=== PATIENT | male | born 1945 | race Caucasian/White ===

== ENCOUNTER 2021-09-09 11:41 | Emergency (ER) | payer MEDICARE ==
[2021-09-09 12:00] VITALS: RESP 18; TEMP 97.3
[2021-09-09 12:28] LABS: Basophils % (A) 0 %; Eosinophils # (A) 0.4 k/uL (0-0.7); Eosinophils % (A) 3 %; HCT 48.6 % (39.0-53.0); HGB 15.7 gm/dL (13.0-17.5); Lymphocytes # (A) 1.8 k/uL (1.0-4.8); Lymphocytes % (A) 14 %; MCH 30.2 pg (25.0-35.0); MCHC 32.4 g/dL (31.0-37.0); MCV 93.3 fL (80.0-100.0); Mean Platelet Volume 7.2; Monocytes # (A) 0.5 k/uL (0-1.0); Monocytes % (A) 4 %; Neutrophils # (A) 10.5 k/uL (1.3-7.7); Neutrophils % (A) 78 %; Platelet Count 336 k/uL (150-450); RBC 5.21 m/uL (4.30-5.90); RDW 13.8 % (11.5-15.5); WBC 13.5 k/uL (3.8-10.6)
[2021-09-09 12:38] LABS: African American GFR (CKD) >90 (>60 ml/min/1.73 sqM); Anion Gap 9 mmol/L; Blood Urea Nitrogen 16 mg/dL (9-20); Carbon Dioxide 29 mmol/L (22-30); Chloride 96 mmol/L (98-107); Glucose 117 mg/dL (74-99); Non-African American GFR(CKD) 78 (>60 ml/min/1.73 sqM); Potassium 3.5 mmol/L (3.5-5.1); Sodium 134 mmol/L (137-145)
[2021-09-09 12:45] LABS: INR 0.9 (<1.2); Partial Thromboplastin Time 23.7 sec (22.0-30.0); Prothrombin Time 9.7 sec (9.0-12.0)
--- NOTE | 2021-09-09 12:57 | ED ---
General Adult HPI - General Chief complaint: Altered Mental Status Stated complaint: fall, hit head Time Seen by Provider: 09/09/21 12:03 Source: patient Mode of arrival: ambulatory Limitations: no limitations - History of Present Illness Initial comments: Dictation was produced using [employer] dictation software. please excuse any grammatical, word or spelling errors. Chief Complaint: 76-year-old male presents emergency department after fall History of Present Illness: Patient 76-year-old male he presents to the emergency department after fall. Has past medical history of A. fib takes anticoagulation medications. Event occurred at approximately 10:30 AM. He is, from the store walking into the house when he slipped on a patch of ice. He states he hurt his right ankle. He states he thinks he inverted it. He fell backwards landing on his back. He initially went to the urgent care was told to come to the emergency department. He started having nausea when the waiting or mental urgent care. He is thinking he probably has a concussion. He has also thoracic and lumbar back pain and posterior right rib pain. States that his pain is improved not worse with pressing will worse with truncal rotation and bending. The ROS documented in this emergency department record has been reviewed and confirmed by me. Those systems with pertinent positive or negative responses have been documented in the HPI. All other systems are other negative and/or noncontributory. PHYSICAL EXAM: General Impression: Alert and oriented x3, not in acute distress HEENT: Normocephalic atraumatic, extra-ocular movements intact, pupils equal and reactive to light bilaterally, mucous membranes moist. Cardiovascular: Heart regular rate and rhythm Chest: Able to complete full sentences, no retractions, no tachypnea Abdomen: abdomen soft, non-tender, non-distended, no organomegaly Musculoskeletal: Pulses present and equal in all extremities, no peripheral edema Ankle: Mild swelling at the right lateral malleolus Motor: no focal deficits noted Neurological: CN II-XII grossly intact, no focal motor or sensory deficits noted Skin: Intact with no visualized rashes Psych: Normal affect and mood ED course: 76-year-old male presents after fall. Vital signs upon arrival are within acceptable limits. Laboratory evaluation obtained. CBC, coag panel, metabolic panel is unremarkable. Ankle x-ray shows no obvious fracture but there does appear to be some cortical offset concerning for nondisplaced fracture. Computed tomography scan of chest and pelvis shows no traumatic injuries. Computed tomography scan of the head and C-spine shows no intracranial injuries. Reevaluated at bedside to 30 p.m. found to be stable medical condition. He is well-appearing. He states that his pain is significantly improved. Patient placed in a right lower extremity ankle posterior mold splint. Patient given crutches and tramadol starter pack. Advised follow-up with primary care doctor, orthopedic surgeon or imaging technician. Also encouraged to follow-up with his neurologist for concussive symptoms. - Related Data Allergies Allergy/AdvReac Type Severity Reaction Status Date / Time No Known Allergies Allergy Verified 09/09/21 11:51 Review of Systems ROS Statement: Those systems with pertinent positive or pertinent negative responses have been documented in the HPI. ROS Other: All systems not noted in ROS Statement are negative. Past Medical History Past Medical History: Atrial Fibrillation, CVA/TIA, GERD/Reflux, Hyperlipidemia, Hypertension History of Any Multi-Drug Resistant Organisms: None Reported Past Surgical History: Pacemaker Past Psychological History: No Psychological Hx Reported Smoking Status: Never smoker Past Alcohol Use History: None Reported Past Drug Use History: None Reported General Exam Limitations: no limitations Course Vital Signs 09/09/21 11:52 Temperature 97.3 F L Pulse Rate 99 Respiratory 18 Rate Blood Pressure 155/92 O2 Sat by Pulse 99 Oximetry Medical Decision Making - Lab Data Result diagrams: 09/09/21 12:22 09/09/21 12:22 Lab Results 09/09/21 09/09/21 09/09/21 Range/Units 12:22 12:22 12:22 WBC 13.5 H (3.8-10.6) k/uL RBC 5.21 (4.30-5.90) m/uL Hgb 15.7 (13.0-17.5) gm/dL Hct 48.6 (39.0-53.0) % MCV 93.3 (80.0-100.0) fL MCH 30.2 (25.0-35.0) pg MCHC 32.4 (31.0-37.0) g/dL RDW 13.8 (11.5-15.5) % Plt Count 336 (150-450) k/uL MPV 7.2 Neutrophils % 78 % Lymphocytes % 14 % Monocytes % 4 % Eosinophils % 3 % Basophils % 0 % Neutrophils # 10.5 H (1.3-7.7) k/uL Lymphocytes # 1.8 (1.0-4.8) k/uL Monocytes # 0.5 (0-1.0) k/uL Eosinophils # 0.4 (0-0.7) k/uL Basophils # 0.0 (0-0.2) k/uL PT 9.7 (9.0-12.0) sec INR 0.9 (<1.2) APTT 23.7 (22.0-30.0) sec Sodium 134 L (137-145) mmol/L Potassium 3.5 (3.5-5.1) mmol/L Chloride 96 L (98-107) mmol/L Carbon Dioxide 29 (22-30) mmol/L Anion Gap 9 mmol/L BUN 16 (9-20) mg/dL Creatinine 0.95 (0.66-1.25) mg/dL Est GFR (CKD-EPI)AfAm >90 (>60 ml/min/1.73 sqM) Est GFR (CKD-EPI)NonAf 78 (>60 ml/min/1.73 sqM) Glucose 117 H (74-99) mg/dL Calcium 9.0 (8.4-10.2) mg/dL Disposition Clinical Impression: Fall Disposition: HOME SELF-CARE Condition: Fair Instructions (If sedation given, give patient instructions): Fall Prevention for Older Adults (ED), Ankle Fracture (ED) Is patient prescribed a controlled substance at d/c from ED?: No Referrals: Augie Luis MD [Primary Care Provider] - 1-2 days Vahid Thibodeaux MD [Medical Doctor] - 1-2 days Leandro Sargent DPM [STAFF PHYSICIAN] - 1-2 days
--- NOTE | 2021-09-09 13:01 | CT ---
EXAMINATION TYPE: CT brain hsaina gonzalez DATE OF EXAM: 09/09/2021 COMPARISON: None HISTORY: Fall this am, hitting occipital lobe CT DLP: 1640.[address] of the brain was performed. The ventricles, basal cisterns and sulci overlying the cerebral convexities demonstrate mild enlargem ent. There is no evidence for intracranial hemorrhage or sulcal effacement. There is decreased attenuatio n about the periventricular white matter and deep white matter of both cerebral hemispheres, compatib le with chronic small vessel ischemia. No mass effects are seen. If symptoms persist consider MRI. Osseous calvarium is intact. IMPRESSION: 1. Age related atrophic and chronic small vessel ischemic change without acute intracranial process seen at this time. CT Cervical Spine: Unenhanced CT of the cervical spine was performed with bone and soft tissue window settings submitted . Coronal and sagittal reconstruction is obtained. There is normal alignment and prevertebral soft tissues. No evidence for acute cervical fracture . Scattered degenerative disc disease and spondylosis. Biapical scarring. IMPRESSION: 1. No evidence for acute fracture or subluxation of the cervical spine.
--- NOTE | 2021-09-09 13:45 | CT ---
EXAMINATION TYPE: CT ChestAbdPelvis w con DATE OF EXAM: 09/09/2021 COMPARISON: None HISTORY: Fall, hit head CT DLP: 1581.2 mGycm CONTRAST: Contrast enhanced Trauma CT of the Chest, Abdomen and Pelvis is performed with IV Contrast, patient i njected with 100 ml mL of Isovue 300. Chest: LUNGS: There is no evidence for pneumothorax. The lungs are clear and free of focal contusion or ate lectasis. No pleural effusion MEDIASTINUM: Thoracic aorta is of normal caliber without CT evidence to suggest traumatic induced ao rtic injury. No mediastinal fluid or blood. No pericardial fluid or cardia abnormality. HILAR STRUCTURES: No evidence for mass. No hilar adenopathy is appreciated. OTHER: No significant abnormality. OSSEOUS: There appears to be a healed fracture involving right rib #7 seen on image 38 of 147. Correl ate clinically with point tenderness. CT ABDOMEN AND PELVIS FINDINGS: LIVER/GB: No focal laceration, contusion or subcapsular hemorrhage. No calcified gallstones. No s pace occupying hepatic lesion. Biliary tree is of normal caliber. PANCREAS: No evidence for transection. No inflammation. No distinct mass. SPLEEN: No focal laceration, contusion or subcapsular hemorrhage. ADRENALS: No hemorrhage. No nodule. No thickening. KIDNEYS/BLADDER: No focal laceration, contusion or subcapsular hemorrhage. No hydronephrosis. No n ephrolithiasis. Simple cyst right kidney. BOWEL: Bowel is intact. No evidence for pneumoperitoneum. GENITAL ORGANS: No gross abnormality. LYMPH NODES: No greater than 1cm abdominal or pelvic lymph nodes are appreciated. AORTA: No traumatic aortic injury visualized. OSSEOUS STRUCTURES: No displaced fracture seen. OTHER: No evidence for hemoperitoneum. IMPRESSION: 1. No evidence for traumatic injury to the chest. 2. No evidence for traumatic injury to the abdomen or pelvis. 3.There appears to be a healed fracture involving right rib #7 seen on image 38 of 147. Correlate cli nically with point tenderness.
--- NOTE | 2021-09-09 13:47 | XR ---
EXAMINATION TYPE: XR ankle complete RT DATE OF EXAM: 09/09/2021 COMPARISON: NONE HISTORY: Pain TECHNIQUE: Frontal, lateral and oblique images of the right ankle are obtained. COMPARISON: None. FINDINGS: There is vague cortical offset involving the lateral malleolus and nondisplaced fracture is difficult to exclude. There is associated soft tissue swelling seen. No additional fracture suspecte d. Ankle mortise is intact. IMPRESSION: There is vague cortical offset involving the lateral malleolus and nondisplaced fracture is difficult to exclude.
[2021-09-09] MEDS ORDERED: traMADol 50 MG STARTER PACK 3 TAB BTL PO STA (14:35)
--- NOTE | 2021-09-09 14:36 | ED ---
Medical Decision Making - Lab Data Result diagrams: 09/09/21 12:22 09/09/21 12:22 Lab Results 09/09/21 09/09/21 09/09/21 Range/Units 12:22 12: 12:22 WBC 13.5 H (3.8-10.6) k/uL RBC 5.21 (4.30-5.90) m/uL Hgb 15.7 (13.0-17.5) gm/dL Hct 48.6 (39.0-53.0) % MCV 93.3 (80.0-100.0) fL MCH 30.2 (25.0-35.0) pg MCHC 32.4 (31.0-37.0) g/dL RDW 13.8 (11.5-15.5) % Plt Count 336 (150-450) k/uL MPV 7.2 Neutrophils % 78 % Lymphocytes % 14 % Monocytes % 4 % Eosinophils % 3 % Basophils % 0 % Neutrophils # 10.5 H (1.3-7.7) k/uL Lymphocytes # 1.8 (1.0-4.8) k/uL Monocytes # 0.5 (0-1.0) k/uL Eosinophils # 0.4 (0-0.7) k/uL Basophils # 0.0 (0-0.2) k/uL PT 9.7 (9.0-12.0) sec INR 0.9 (<1.2) APTT 23.7 (22.0-30.0) sec Sodium 134 L (137-145) mmol/L Potassium 3.5 (3.5-5.1) mmol/L Chloride 96 L (98-107) mmol/L Carbon Dioxide 29 (22-30) mmol/L Anion Gap 9 mmol/L BUN 16 (9-20) mg/dL Creatinine 0.95 (0.66-1.25) mg/dL Est GFR (CKD-EPI)AfAm >90 (>60 ml/min/1.73 sqM) Est GFR (CKD-EPI)NonAf 78 (>60 ml/min/1.73 sqM) Glucose 117 H (74-99) mg/dL Calcium 9.0 (8.4-10.2) mg/dL Disposition Clinical Impression: Fall Disposition: HOME SELF-CARE Condition: Fair Instructions (If sedation given, give patient instructions): Ankle Fracture (ED), Fall Prevention for Older Adults (ED) Is patient prescribed a controlled substance at d/c from ED?: No Referrals: Leandro Sargent DPM [STAFF PHYSICIAN] - 1-2 days Augie Luis MD [Primary Care Provider] - 1-2 days Vahid Thibodeaux MD [Medical Doctor] - 1-2 days Procedures - Orthopedic Splinting/Casting Injury #1 Side: right Lower Extremity Injury Location: short leg, ankle Lower Extremity Immobilizer: posterior splint Other Orthopedic Equipment: crutches
[2021-09-09 15:15] VITALS: BP 116/56; PULSE 74
== END 2021-09-09 15:44 | disposition home or self-care (01) ==
LOC: EC 11:41
DX: M54.59 Other low back pain (principal); I10 Essential (primary) hypertension; E78.5 Hyperlipidemia, unspecified; I48.91 Unspecified atrial fibrillation; K21.9 Gastro-esophageal reflux disease without esophagitis; Z86.73 Personal history of transient ischemic attack (TIA), and cerebral infarction without residual deficits; Z95.0 Presence of cardiac pacemaker
CPT/HCPCS: 99284; 36415; 80048; 85025; 85610; 85730; 73610; 72125; 70450; 71260; 74177; Q9967

== ENCOUNTER → 2022-07-12 | Outpatient (CLI) | payer MEDICARE ==
--- NOTE | 2022-07-12 12:04 | CT ---
EXAMINATION TYPE: CT soft tissue neck w con DATE OF EXAM: 07/12/2022 COMPARISON: CT chest abdomen and pelvis 09/09/2021 HISTORY: Swelling right side mass/lump CT DLP: 604 mGycm CONTRAST: Patient injected with 70 ml mL of Isovue 300. TECHNIQUE: Axial images at 3 mm thick sections. Reconstructed images in the coronal plane and sagitt al plane are reviewed. FINDINGS: Limited CT sections are obtained the lung apices. The lung apices appear clear. CT neck: The torus tubarius and fossa of Rosenmuller are normal. Linux Server Engineer spaces are normal. Para nasal sinuses and mastoid air cells are clear. Parotid glands appear normal and symmetrical. Inferior to the right parotid gland is a BB marking an area of swelling. Note is made of a low density structure measuring -105 Hounsfield units and 1.5 cm in size likely is a small lipoma. Submandibular glands, are normal. Parapharyngeal spaces are normal. No suspicious adenopathy is jorge dent. The hypopharynx appears within normal limits. Vocal cord level appear symmetrical. Thyroid as visualized is normal. Osseous structures are normal. Limited CT sections are obtained from the upper lung field. There is a groundglass opacity in the pos terior left upper lung field measuring 2.2 x 1.7 cm. This was present previously but is smaller withi n the [id number]. Repeat CT chest however is recommended to evaluate the more inferior aspect of t his area out of the [id number]. IMPRESSIONS: 1. There appears to be a lipoma inferior to the right parotid gland which may correspond to the area marked as a palpable abnormality within the right neck. No suspicious masses evident at this level. 2. Note is made of a incompletely evaluated groundglass opacity in the posterior right upper lung fie ld. This was present previously but appears incompletely evaluated. CT chest recommended for complete evaluation.
== END | disposition home or self-care (01) ==
LOC: RADCTMAIN 07:41
PROVIDERS: ATTEND Psychiatry & Neurology Neurology
DX: R91.8 Other nonspecific abnormal finding of lung field (principal)
CPT/HCPCS: 82565; 84520; 70491; 36415; Q9967

== ENCOUNTER → 2022-08-06 | Outpatient (CLI) | payer MEDICARE ==
--- NOTE | 2022-08-06 11:23 | CT ---
EXAMINATION TYPE: CT chest w con DATE OF EXAM: 08/06/2022 COMPARISON: 09/09/2021 HISTORY: 77-year-old male R91.1, Solitary pulmonary nodule TECHNIQUE: Contiguous axial scanning of the chest after the administration of 100 ml mL of Isovue 300 . Coronal/sagittal reconstructions performed. CT DLP: 648mGycm. Automatic exposure control utilized for a dose reduction. FINDINGS: Heart normal size without pericardial effusion. LAD and RCA coronary artery calcifications are presen t. Left anterior chest wall pacemaker generator with right atrial and right ventricular leads. Mild ectasia ascending aorta 3.1 cm. Mild atherosclerotic arch calcifications. Conventional arch vess el branching anatomy. Mild ectasia of the lower descending thoracic aorta 2.7 cm. Mild bilateral gynecomastia. Scattered nonenlarged mediastinal lymph nodes are present. No thoracic l ymphadenopathy by CT size criteria. Borderline caliber to the main right and left pulmonary arteries measuring up to 2.6 cm suggesting un derlying pulmonary arterial hypertension. Lobulated area of groundglass opacity superior segment left lower lobe measuring 2.9 cm previously me asured 2.7 cm. A more confluent component along the inferior margin measures 1.5 cm, versus 1.4 cm, p reviously. There may also be a new associated 5 mm nodule along the superior margin, axial image 18. There is an enlarging 1.1 cm nodule posterior right lower lobe, axial image 33 versus 5 mm, previousl y. 5 mm groundglass nodule right upper lobe, axial image 20 remains unchanged. Some strandy scarring or atelectasis in the lower lungs. No consolidation or pleural effusion. Visualized upper abdomen shows right renal cyst measuring up to 3.0 cm and moderate stool throughout the visualized colon. Bones: Moderate degenerative disc disease midthoracic spine. Osteopenia. IMPRESSION: 1. Lobulated groundglass focus measuring 2.9 cm superior segment left lower lobe. Minimally larger ve rsus 2.7 cm, previously. The more confluent component along the inferior aspect of the groundglass me asures 1.5 cm versus 1.4 cm, previously. There may also be a new 5 mm solid component along the super ior margin. Suspect an area of adenomatous hyperplasia. Ongoing close surveillance at 3-6 month inter vals to exclude malignant transformation. 2. Enlarging 1.1 cm nodule posterior right lower lobe versus 5 mm, previously. Early primary lung can cer not excluded. Consider pulmonary medicine referral and PET CT evaluation.
== END | disposition home or self-care (01) ==
LOC: RADCTMAIN 08:30
PROVIDERS: ATTEND Family Medicine
DX: R91.8 Other nonspecific abnormal finding of lung field (principal)
CPT/HCPCS: 82565; 84520; 71260; 36415; Q9967

== ENCOUNTER → 2022-08-27 | Outpatient (CLI) | payer MEDICARE ==
--- NOTE | 2022-08-30 06:18 | PE ---
EXAMINATION TYPE: PET CT fusion skull to thigh DATE OF EXAM: 08/27/2022 COMPARISON: Most recent CT August 06, 2022 and older studies HISTORY: Solitary pulmonary nodule, abnormal CT. TECHNIQUE: Following the intravenous administration of 10.3 mCi of F-18 FDG, whole body images are p erformed from the skull base to the midthigh. Images are reviewed on the computer in the coronal, ax ial, and sagittal planes. Reconstructed rotating images are created on independent workstation and r eviewed on the computer. A localization and attenuation correction CT is performed in conjunction w ith the PET scan. Blood glucose level equals 90 SCAN: Initial Scan FINDINGS: SKULL BASE AND NECK: No areas of abnormal hypermetabolic uptake. CHEST, MEDIASTINUM, AND HILAR REGION: No areas of abnormal hypermetabolic uptake. Persistent 2.9 cm f ocus of groundglass opacity superior aspect left lower lobe axial image 88 with more solid 1.4 cm com ponent inferiorly axial image 93 without abnormal hypermetabolic uptake. Persistent 1.1 cm right lowe r lobe nodule axial image 104 also shows no abnormal hypermetabolic uptake. ABDOMEN AND PELVIS: Suspicious apple core type neoplasm in the low-lying cecum in right measures 5.8 x 5.0 cm, max SUV is 18.44 on axial image 220. No adjacent abnormal hypermetabolic lymph nodes clear ly seen. No adrenal masses. Normal excretion and bladder. OSSEOUS STRUCTURES: No areas of abnormal hypermetabolic uptake. OTHER CT: Low lung volumes along with cardiomegaly and dual-lead pacemaker are redemonstrated. Granger ry artery calcification is again seen. IMPRESSION: 1. 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 2. No abnormal hypermetabolic uptake in the bilateral lung nodules. Continued imaging monitoring advi se as metastatic disease is in differential.
== END | disposition home or self-care (01) ==
LOC: RADPETMAIN 07:23
PROVIDERS: ATTEND Nurse Practitioner
DX: R91.8 Other nonspecific abnormal finding of lung field (principal)
CPT/HCPCS: 78815; A9552

== ENCOUNTER 2022-09-07 10:16 | Day surgery (SDC) | payer MEDICARE ==
[2022-09-03 08:45] VITALS: BMI 26.5
[~2022-09-07 10:16] MED LIST: LACTATED RINGERS 1,000 ML IV SCH; LIDOCAINE 1% (10MG/ML) FOR IV START INTRADERMA PRN
[2022-09-07 10:57] VITALS: RESP 18; TEMP 96.9
[2022-09-07] MEDS ORDERED: PROPOFOL 10 MG/ML 20 ML VIAL IV ONE (11:32)
--- NOTE | 2022-09-07 11:43 | P.GSHP ---
History of Present Illness H&P Date: 09/07/22 Chief Complaint: Colon mass 77-year-old male here today for colonoscopy. Patient was being evaluated for a lung nodule and on a PET scan showed a sigmoid colon mass. Patient has no bowel related complaints however his prep that he took last night led to significant bloating and cramps with a delay in stool function. He states he does occasionally see blood in his stool. 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 Being worked up at this time by Dr Leblanc History of Any Multi-Drug Resistant Organisms: None Reported Past Surgical History: Appendectomy, Hernia Repair, Pacemaker Additional Past Surgical History / Comment(s): inguinal right side, cataract both eyes, Past Anesthesia/Blood Transfusion Reactions: No Reported Reaction Type of Cardiac Device: Permanent Pacemaker Device Placement Date:: biotronic DRTPro mRI placed 10/11/14 Past Psychological History: Anxiety Additional Psychological History / Comment(s): pt with flight of ideas while providing history reports feels very anxious Smoking Status: Former smoker Past Alcohol Use History: None Reported Past Drug Use History: None Reported - Past Family History Sister(s) Family Medical History: Cancer Additional Family Medical History / Comment(s): skin cancer Brother(s) Family Medical History: Cancer Additional Family Medical History / Comment(s): lymph nodes Medications and Allergies Home Medications Medication Instructions Recorded Confirmed Type Apixaban [Eliquis] 5 mg PO BID 09/03/22 09/03/22 History Atorvastatin [Lipitor] 40 mg PO HS 09/03/22 09/07/22 History Cholecalciferol [Vitamin D3 (125 125 mcg PO DAILY 09/03/22 09/03/22 History Mcg = 5000 Iu)] Clotrimazole/Betamethasone Dip 1 applic TOPICAL DAILY PRN 09/03/22 09/07/22 History [Clotrimazole-Betamethasone Lot] Famotidine [Pepcid] 20 mg PO BID 09/03/22 09/07/22 History Ferrous Sulfate [Iron (65 MG 1 tab PO DAILY 09/03/22 09/03/22 History Elemental)] Folic Acid 1 mg PO DAILY 09/03/22 09/03/22 History Loratadine [Claritin] 5 mg PO BID PRN 09/03/22 09/07/22 History Magnesium 250 mg PO DAILY 09/03/22 09/03/22 History Metoprolol Succinate [Toprol XL] 50 mg PO BID 09/03/22 09/07/22 History Omeprazole 20 mg PO BID 09/03/22 09/07/22 History Thiamine [Vitamin B-1] 100 mg PO DAILY 09/03/22 09/03/22 History Triamterene/Hydrochlorothiazid 1 tab PO BID 09/03/22 09/07/22 History [Maxzide 37.5-25] allopurinoL 300 mg PO DAILY 09/03/22 09/07/22 History amLODIPine [Norvasc] 10 mg PO HS 09/03/22 09/07/22 History diazePAM [Valium] 5 mg PO BID 09/03/22 09/07/22 History Allergies Allergy/AdvReac Type Severity Reaction Status Date / Time procaine [From Novocain] Allergy PASSED OUT Verified 09/07/22 11:00 Surgical - Exam Vital Signs Temp Pulse Resp BP Pulse Ox 96.9 F L 75 18 135/69 95 09/07/22 10:54 09/07/22 10:54 09/07/22 10:54 09/07/22 10:54 09/07/22 10:54 Physical exam: General: Well-developed, well-nourished HEENT: Normocephalic, sclerae nonicteric Abdomen: Nontender, nondistended Extremities: No edema Neuro: Alert and oriented Assessment and Plan (1) Colonic mass Narrative/Plan: Will proceed with colonoscopy at this time. Current Visit: Yes Status: Acute Code(s): K63.89 - OTHER SPECIFIED DISEASES OF INTESTINE SNOMED Code(s): 822478057
--- NOTE | 2022-09-07 11:53 | P.PCN ---
Date of Procedure: 09/07/22 Procedure(s) Performed: PREOPERATIVE DIAGNOSIS: Colon mass POSTOPERATIVE DIAGNOSIS: Circumferential sigmoid colon mass at 20 cm PROCEDURE: Flexible sigmoidoscopy with biopsy ANESTHESIA: MAC SURGEON: Rubne Nick M.D. SPECIMENS: Mass ENDOSCOPIC PROCEDURE: The patient was placed on the endoscopy table in the left decubitus position. The Olympus colonoscope was inserted into the anus and passed under direct visualization to the mid to distal sigmoid colon. At 20 cm a circumferential mass was identified that appeared malignant. Multiple biopsies were taken. I could not pass the scope beyond this point as I was unable to visualize the lumen. The remainder of the sigmoid and rectum appeared normal. This was not palpable digital rectal examination. The patient was taken to the recovery room in stable condition per anesthesia guidelines. RECOMMENDATIONS: Await biopsy results. Patient with some degree of colonic obstruction based on his slow bowel prep and the circumferential appearance of this tumor. Patient will require segmental resection. Will discuss further with the patient postoperatively.
[2022-09-07 13:02] VITALS: BP 116/68; PULSE 76
== END 2022-09-07 13:04 | disposition home or self-care (01) ==
LOC: ORWHC2ENDO 10:16
PROVIDERS: ATTEND Surgery
DX: K63.89 Other specified diseases of intestine (principal); E78.5 Hyperlipidemia, unspecified; F41.9 Anxiety disorder, unspecified; I10 Essential (primary) hypertension; I48.91 Unspecified atrial fibrillation; K21.9 Gastro-esophageal reflux disease without esophagitis; M10.9 Gout, unspecified; M19.90 Unspecified osteoarthritis, unspecified site; Z79.01 Long term (current) use of anticoagulants; Z86.73 Personal history of transient ischemic attack (TIA), and cerebral infarction without residual deficits; Z87.891 Personal history of nicotine dependence; Z90.49 Acquired absence of other specified parts of digestive tract; Z95.0 Presence of cardiac pacemaker
CPT/HCPCS: 45331; J2704; 88305

== ENCOUNTER → 2022-09-09 | Outpatient (CLI) | payer MEDICARE ==
[2022-09-09 18:32] LABS: HCT 45.8 % (39.6-50.0); HGB 14.6 g/dL (13.0-17.0); MCH 28.5 pg (27.0-32.0); MCHC 31.9 g/dL (32.0-37.0); MCV 89.5 fL (80.0-97.0); Mean Platelet Volume 9.9 fL (9.5-12.2); NRBC Per 100 WBC 0 /100 WBCS (0.0-0.0); Platelet Count 296 X 10*3/uL (140-440); RBC 5.12 X 10*6/uL (4.40-5.60); RDW 13.9 % (11.5-14.5); WBC 7.55 X 10*3/uL (4.50-10.00)
[2022-09-09 18:47] LABS: Anion Gap 11.2 mmol/L (10.00-18.00); Carbon Dioxide 29.5 mmol/L (20.0-27.5); Potassium 3.9 mmol/L (3.5-5.5)
== END | disposition home or self-care (01) ==
LOC: LABPAT 11:06
PROVIDERS: ATTEND Surgery
DX: Z01.812 Encounter for preprocedural laboratory examination (principal); C18.9 Malignant neoplasm of colon, unspecified
CPT/HCPCS: 80051; 85027; 86850; 86900; 86901

== ENCOUNTER 2022-09-14 10:33 | Inpatient (IN) | payer MEDICARE ==
[~2022-09-14 10:33] MED LIST changes: +ACETAMINOPHEN TAB 500 MG TAB PO PRN; +ALVIMOPAN 12 MG CAPSULE PO PRN; +HEPARIN SODIUM,PORCINE/PF 5,000 UNIT/0.5 ML SYRINGE SQ PRN; -LACTATED RINGERS 1,000 ML IV SCH; -LIDOCAINE 1% (10MG/ML) FOR IV START INTRADERMA PRN; +metroNIDAZOLE-NS PMX 500 MG in SALINE 1 100ML.BAG IVPB PRN
[2022-09-14] MEDS ORDERED: LACTATED RINGERS 1,000 ML IV ONE ×2 (11:23→13:16)
[2022-09-14] MEDS ORDERED: ONDANSETRON 4 MG/2 ML VIAL ONE (11:29)
[2022-09-14] MEDS ORDERED: DEXAMETHASONE SOD PHOSPHATE 4 MG/ML 1 ML VIAL IVP ONE (11:37)
[2022-09-14] MEDS ORDERED: ONDANSETRON 4 MG/2 ML VIAL IVP ONE ×2 (11:38→15:20)
[2022-09-14] MEDS ORDERED: MIDAZOLAM 2 MG/2 ML VIAL IVP ONE (11:47)
[2022-09-14] MEDS ORDERED: GLYCOPYRROLATE 0.2 MG/ML 2 ML VIAL ONE (12:07)
[2022-09-14] MEDS ORDERED: HEPARIN SODIUM,PORCINE 5,000 UNIT/ML 1 ML VIAL ONE (12:07)
[2022-09-14] MEDS ORDERED: PROPOFOL 10 MG/ML 20 ML VIAL IV ONE (12:07)
[2022-09-14] MEDS ORDERED: PHENYLEPHRINE-0.9% NACL SYG 1,000 MCG/10 ML SYRINGE ONE (12:07)
[2022-09-14] MEDS ORDERED: SUCCINYLCHOLINE CHLORIDE 200 MG/10 ML VIAL IV ONE (12:07)
[2022-09-14] MEDS ORDERED: NEOSTIGMINE 1 MG/ML 10 ML VIAL ONE (12:07)
[2022-09-14] MEDS ORDERED: ROCURONIUM 10 MG/ML (5 ML VIAL) IV ONE (12:07)
[2022-09-14] MEDS ORDERED: LIDOCAINE 2% INJ 20 MG/ML (2 ML VIAL) ONE (12:07)
[2022-09-14] MEDS ORDERED: fentaNYL (PF) 50 MCG/ML 2 ML AMP ONE (12:07)
[2022-09-14] MEDS ORDERED: NALOXONE 0.4 MG/ML 1 ML VIAL IV PRN (12:09)
--- NOTE | 2022-09-14 12:14 | P.ANPRN ---
Procedure Note - Anesthesia - Epidural/Spinal Epidural Continuous Time Out Performed: Yes Date of Procedure: 09/14/22 Procedure Start Time: 11:46 Procedure Stop Time: 11:56 Location of Patient: PreOp Indication: Acute Post-Operative Pain, Analgesia, Requested by Surgeon Sedation Type: Sedate with meaningful contact maintained Preparation: Sterile Dressing Position: Sitting Catheter: Indwelling Needle Guage: 18 Narrative: The benefits and risks of the procedure was explained to the patient and informed consent was obtained. After proper positioning, L1-L2 Space identified and cleaned with Betadine and iodine solution. 2 mL of 1% lidocaine was thoroughly infiltrated into the above mentioned space after draping the the area. 18-gauge Tuhoy needle was inserted into the space and loss of resistance to air was obtained at 6 cm depth. Next, an epidural catheter was threaded through the needle into this space and negative aspiration for any blood or CSF noted. Test dose was given and no untoward reactions noted. Epidural was secured and taped. Patient tolerated the procedure very well. Blood Aspirated: No Pain Paresthesia on Injection Noted: No Events: Uneventful and Well Tolerated
[2022-09-14] MEDS: ROPIVACAINE 250 MG, HYDROMORPHONE (PF) 5 MG in SODIUM CHLORIDE 0.9% 200 ML EPIDURAL PRN (14:39)
[2022-09-14] MEDS ORDERED: HYDROmorphone 1 MG/ML 1 ML SYRINGE IVP PRN (15:58)
[2022-09-14] MEDS ORDERED: ONDANSETRON 4 MG/2 ML VIAL IVP PRN (15:58)
--- NOTE | 2022-09-14 16:04 | P.OP ---
Date of Procedure: 09/14/22 Procedure(s) Performed: PREOPERATIVE DIAGNOSIS: Sigmoid colon cancer POSTOPERATIVE DIAGNOSIS: Same, umbilical hernia PROCEDURE: Low anterior sigmoid resection, repair umbilical hernia SURGEON: Park EBL: 75 mL ANESTHESIA: General COMPLICATIONS: None OPERATIVE PROCEDURE: Patient place in the operative table in the supine position. The patient was placed under general anesthesia. The patient was then placed in lithotomy. The abdomen was prepped and draped in usual sterile fashion. A vertical incision was made extending from the infraumbilical location to the suprapubic location. The fascia was divided as well. The patient had a small umbilical hernia that was included with our fascial opening and later closed with the fascia after dissecting the fascia and excising a portion of the fascia where the hernia was present. The Bookwalter retractor was utilized. The patient's large sigmoid mass was noted. This was free of any adhesions thankfully. This was present in the mid to distal sigmoid colon as expected. The sigmoid colon was fully mobilized by incising the white line of Toldt. The left and right ureters were both identified and preserved. A site was chosen for division of the sigmoid colon proximally. A small colotomy was created and the 29 EEA anvil was advanced into the lumen of the sigmoid colon and milked proximally. The bowel was then divided using a linear 75 stapler and the anvil was brought out adjacent to the staple line. A 3-0 silk pursestring suture was placed around the anvil at that location. The mesentery was divided using the LigaSure device and [address]section took place down to the proximal rectum where the tenia was noted to splay out. The proximal rectum was divided using the contour stapler. The specimen was passed off the field at that point. No signs of bleeding at either staple line was noted after irrigation. The stapler was then inserted into the anus and brought up to the staple line. The obturator was brought out just anterior to the staple line. The 2 portions of the stapler were connected to one another and subsequently tightened and fired. The bowel was clamped proximal to the anastomosis. The rigid sigmoidoscope was utilized to fill the anastomotic site nicely with air. There was saline in the pelvis at this time. No evidence of leak was seen. The abdomen was irrigated with saline. The liver, stomach, visualized colon, and small bowel appeared normal. The midline fascia was then reapproximated using 2 separate double-stranded #1 PDS sutures. The umbilical hernia repair took place by reapproximating the fascia at that location. The subcutaneous tissues were closed using 3-0 Vicryl sutures. The skin was then closed using [place]. Sterile dressings were then applied. DISPOSITION: Stable to recovery room
[2022-09-14] MEDS: D5-0.45% NACL WITH KCL 20MEQ/L 1,000 ML IV SCH (17:09)
[2022-09-14] MEDS: HEPARIN SODIUM,PORCINE/PF 5,000 UNIT/0.5 ML SYRINGE SQ SCH (17:10)
[2022-09-14] MEDS: FAMOTIDINE 20 MG/2 ML VIAL IV SCH (22:31)
--- NOTE | 2022-09-14 22:57 | P.CONS ---
History of Present Illness - Reason for Consult Consult date: 09/14/22 Medical management - History of Present Illness 77-year-old male who with history of atrial fibrillation, TIA/CVA, hyperlipidemia, hypertension who underwent colonoscopy and biopsy for a colon mass; patient was being evaluated for lung nodule with a PET scan which showed sigmoid colon mass; patient was admitted to the hospital on 09/07/2022 and underwent colonoscopy.. Patient has no bowel related complaints however his prep that he took last night led to significant bloating and cramps with a delay in stool function. He states he does occasionally see blood in his stool. Biopsy came back positive for cancer and patient was admitted and underwent low anterior sigmoid resection and umbilical hernia repair Hospital medicine is consulted for medical management postoperatively Review of Systems REVIEW OF SYSTEMS: CONSTITUTIONAL: No fever, no malaise, no fatigue. HEENT: No recent visual problems or hearing problems. Denied any sore throat. CARDIOVASCULAR: No chest pain, orthopnea, PND, no palpitations, no syncope. PULMONARY: No shortness of breath, no cough, no hemoptysis. GASTROINTESTINAL: No diarrhea, no nausea, no vomiting, no abdominal pain. NEUROLOGICAL: No headaches, no weakness, no numbness. HEMATOLOGICAL: Denies any bleeding or petechiae. GENITOURINARY: Denies any burning micturition, frequency, or urgency. MUSCULOSKELETAL/RHEUMATOLOGICAL: Denies any joint pain, swelling, or any muscle pain. ENDOCRINE: Denies any polyuria or polydipsia. The rest of the 14-point review of systems is negative. 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 Being worked up at this time by Dr Leblanc History of Any Multi-Drug Resistant Organisms: None Reported Past Surgical History: Appendectomy, Hernia Repair, Pacemaker Additional Past Surgical History / Comment(s): inguinal right side, cataract both eyes, Past Anesthesia/Blood Transfusion Reactions: No Reported Reaction Additional Past Anesthesia/Blood Transfusion Reaction / Comm: no hx blood transfusions Type of Cardiac Device: Permanent Pacemaker Device Placement Date:: natalironic DRTPro mRI placed 10/11/14 Smoking Status: Former smoker - Past Family History Sister(s) Family Medical History: Cancer Additional Family Medical History / Comment(s): skin cancer Brother(s) Family Medical History: Cancer Additional Family Medical History / Comment(s): lymph nodes Medications and Allergies Home Medications Medication Instructions Recorded Confirmed Type Apixaban [Eliquis] 5 mg PO BID 09/03/22 09/14/22 History Atorvastatin [Lipitor] 40 mg PO HS 09/03/22 09/14/22 History Cholecalciferol [Vitamin D3 (125 125 mcg PO DAILY 09/03/22 09/10/22 History Mcg = 5000 Iu)] Clotrimazole/Betamethasone Dip 1 applic TOPICAL DAILY PRN 09/03/22 09/14/22 History [Clotrimazole-Betamethasone Lot] Famotidine [Pepcid] 20 mg PO BID 09/03/22 09/10/22 History Ferrous Sulfate [Iron (65 MG 1 tab PO DAILY 09/03/22 09/14/22 History Elemental)] Folic Acid 800 mcg PO DAILY 09/03/22 09/10/22 History Loratadine [Claritin] 5 mg PO BID PRN 09/03/22 09/14/22 History Magnesium 250 mg PO DAILY 09/03/22 09/10/22 History Omeprazole 20 mg PO BID 09/03/22 09/10/22 History Thiamine [Vitamin B-1] 100 mg PO DAILY 09/03/22 09/10/22 History Triamterene/Hydrochlorothiazid 1 tab PO BID 09/03/22 09/14/22 History [Maxzide 37.5-25] allopurinoL 300 mg PO DAILY 09/03/22 09/14/22 History amLODIPine [Norvasc] 10 mg PO HS 09/03/22 09/14/22 History diazePAM [Valium] 5 mg PO BID 09/03/22 09/10/22 History Metoprolol Tartrate [Lopressor] 50 mg PO BID 09/10/22 09/10/22 History Multivitamins, Thera [Multivitamin 1 tab PO DAILY 09/10/22 09/10/22 History (formulary)] Allergies Allergy/AdvReac Type Severity Reaction Status Date / Time procaine [From Novocain] Allergy PASSED OUT Verified 09/14/22 10:54 Physical Exam Vitals: Vital Signs Temp Pulse Pulse Resp BP Pulse Ox 09/14/22 16:00 60 16 100/52 100 09/14/22 15:45 60 16 96/56 100 09/14/22 15:30 72 16 102/55 100 09/14/22 15:16 60 16 93/51 100 09/14/22 15:01 60 16 93/53 100 09/14/22 14:46 57 L 16 91/50 100 09/14/22 14:31 97.1 F L 60 16 94/55 98 09/14/22 11:56 73 16 137/74 99 09/14/22 11:09 97.8 F 76 16 130/67 97 Intake and Output 09/14/22 09/14/22 09/14/22 06:59 14:59 22:59 Intake Total 1550 Output Total 175 Balance 1375 Intake: IV 1550 Output: Urine 100 Estimated Blood Loss 75 Other: Weight 87 kg PHYSICAL EXAMINATION: GENERAL: The patient is alert and oriented x3, not in any acute distress. Well developed, well nourished. HEENT: Pupils are round and equally reacting to light. EOMI. No scleral icterus. No conjunctival pallor. Normocephalic, atraumatic. No pharyngeal erythema. No thyromegaly. CARDIOVASCULAR: S1 and S2 present. No murmurs, rubs, or gallops. PULMONARY: Chest is clear to auscultation, no wheezing or crackles. ABDOMEN: Soft, nontender, nondistended, normoactive bowel sounds. No palpable organomegaly. MUSCULOSKELETAL: No joint swelling or deformity. EXTREMITIES: No cyanosis, clubbing, or pedal edema. NEUROLOGICAL: Gross neurological examination did not reveal any focal deficits. SKIN: No rashes. Assessment and Plan Assessment: 1. Sigmoid colon cancer; patient is status post low anterior sigmoid resection and umbilical hernia repair; POD #0 - Your management 2. Hypertension; metoprolol 50 mg twice a day and Maxzide 30 7. 525 milligrams twice a day; amlodipine 10 mg by mouth daily at bedtime 3. Hyperlipidemia; patient takes Lipitor 40 mg by mouth daily at bedtime 4. Atrial fibrillation; on metoprolol 50 mg twice a day for rate control and Eliquis for anticoagulation 5. TIA/CVA; patient is on anticoagulation with Eliquis and Lipitor 6. Gastroesophageal reflux disease; omeprazole 20 mg twice a day -- We will plan to hold off on oral medications. Patient is stable for oral intake DVT prophylaxis; SCDs/ resume systemic anticoagulation once cleared by surgery CODE STATUS; full code
[2022-09-15] MEDS: diazePAM 5 MG TAB PO PRN (00:09)
[2022-09-15] MEDS: ATORVASTATIN 40 MG TAB PO SCH ×2 (00:09→21:17)
[2022-09-15] MEDS: HEPARIN SODIUM,PORCINE/PF 5,000 UNIT/0.5 ML SYRINGE SQ SCH ×4 (00:11→23:51)
--- NOTE | 2022-09-15 07:35 | P.PN ---
Progress Note - Text Progress Note Date: 09/15/22 Postop day 1 from anterior resection, epidural catheter inserted for postop pain control. Epidural solution: Bupivacaine 0.625% with Dilaudid 20 mcgs/ml running at 5 mL an hour. Patient pain is well controlled with visual analog score of 2-3/10. No nausea vomiting, itching, weakness or numbness in the legs or headache reported by the patient. Plan: To continue the epidural infusion at the current rate.
[2022-09-15] MEDS: METOPROLOL TARTRATE 25 MG TAB PO SCH ×2 (07:36→21:17)
[2022-09-15] MEDS: FAMOTIDINE 20 MG/2 ML VIAL IV SCH ×2 (07:37→21:17)
[2022-09-15] MEDS: D5-0.45% NACL WITH KCL 20MEQ/L 1,000 ML IV SCH ×3 (07:37→23:51)
[2022-09-15] MEDS: ALVIMOPAN 12 MG CAPSULE PO SCH ×2 (07:37→21:17)
[2022-09-15 08:39] LABS: Basophils # (A) 0.01 X 10*3/uL (0.00-0.10); Basophils % (A) 0.1 %; Eosinophils # (A) 0 X 10*3/uL (0.04-0.35); Eosinophils % (A) 0 %; HCT 40.8 % (39.6-50.0); HGB 13.5 g/dL (13.0-17.0); Immature Grans, Automated 0.3 %; Lymphocytes # (A) 1.03 X 10*3/uL (0.90-5.00); Lymphocytes % (A) 7.8 %; MCH 30.4 pg (27.0-32.0); MCHC 33.1 g/dL (32.0-37.0); MCV 91.9 fL (80.0-97.0); Mean Platelet Volume 10.7 fL (9.5-12.2); Monocytes # (A) 0.89 X 10*3/uL (0.20-1.00); Monocytes % (A) 6.7 %; NRBC Per 100 WBC 0 /100 WBCS (0.0-0.0); Neutrophils # (A) 11.31 X 10*3/uL (1.80-7.70); Neutrophils % (A) 85.1 %; Platelet Count 277 X 10*3/uL (140-440); RBC 4.44 X 10*6/uL (4.40-5.60); RDW 14.5 % (11.5-14.5); WBC 13.28 X 10*3/uL (4.50-10.00)
[2022-09-15 08:50] LABS: African American GFR (CKD) 84.4 (60.0-200.0); Anion Gap 9.9 mmol/L (10.00-18.00); BUN/Creat Ratio 13.2 Ratio (12.00-20.00); Blood Urea Nitrogen 13.2 mg/dL (9.0-27.0); Calcium 8.2 mg/dL (8.7-10.3); Carbon Dioxide 27.1 mmol/L (20.0-27.5); Non-African American GFR(CKD) 72.8 (60.0-200.0); Potassium 4.2 mmol/L (3.5-5.5)
--- NOTE | 2022-09-15 14:22 | P.PN ---
Subjective Progress Note Date: 09/15/22 CHIEF COMPLAINT: Sigmoid colon cancer HISTORY OF PRESENT ILLNESS: Patient is postop day #1 status post lower anterior sigmoid resection and repair of umbilical hernia. Patient currently has epidural in place for pain control. Patient has some pain with movement. Otherwise his pain is controlled. He had nausea earlier this is improved. Denies any vomiting. Denies any flatus. Patient has worked with physical therapy. Afebrile. WBC 13.28 Hgb 13.5 platelets 277 sodium 140 potassium 4.2 creatinine 1.0 PHYSICAL EXAM: VITAL SIGNS: Reviewed. GENERAL: Well-developed in no acute distress. HEENT: No sclera icterus. Extraocular movements grossly intact. Moist buccal mucosa. Head is atraumatic, normocephalic. ABDOMEN: Soft. Nondistended. Incisional dressing small area of saturation noted at the distal aspect of dressing NEUROLOGIC: Alert and oriented. Cranial nerves II through XII grossly intact. ASSESSMENT: 1. Sigmoid colon cancer an umbilical hernia status post lower anterior sigmoid resection and repair of umbilical hernia PLAN: -Continue clear liquid diet -Continue epidural for pain control -Continue IV fluids -Encourage patient to ambulate -Encourage patient to use incentive spirometer -GI prophylaxis Pepcid and DVT prophylaxis subcu heparin Physician Management Aide note has been reviewed by physician. Signing provider agrees with the documented findings, assessment, and plan of care. Objective - Vital Signs Vital signs: Vital Signs Temp 97.5 F L 09/15/22 07:11 Pulse 83 09/15/22 07:11 Resp 16 09/15/22 07:11 BP 114/68 09/15/22 07:11 Pulse Ox 99 09/15/22 07:11 FiO2 Intake & Output 09/14/22 09/15/22 09/15/22 18:59 06:59 18:59 Intake Total 1550.083 930 Output Total 175 800 Balance 1375.083 130 Weight 87 kg Intake: IV 1550 Intake, IV Titration 0.083 Amount Ropivacaine 250 mg 0.083 Hydromorphone (Pf) 5 mg In Sodium Chloride 0.9% 200 ml @ Per Protocol EPIDURAL .Q0M PRN Rx#: [id number] Oral 930 Output: Urine 100 800 Estimated Blood Loss 75 Other: Voiding Method Indwelling Catheter Indwelling Catheter - Labs CBC & Chem 7: 09/15/22 05:11 09/15/22 05:11 Labs: Abnormal Lab Results - Last 24 Hours (Table) 09/15/22 09/15/22 Range/Units 05:11 05:11 WBC 13.28 H (4.50-10.00) X 10*3/uL Neutrophils # 11.31 H (1.80-7.70) X 10*3/uL Eosinophils # 0 L (0.04-0.35) X 10*3/uL Anion Gap 9.90 L (10.00-18.00) mmol/L Glucose 115 H (70-110) mg/dL Calcium 8.2 L (8.7-10.3) mg/dL
[2022-09-15] MEDS: ROPIVACAINE 250 MG, HYDROMORPHONE (PF) 5 MG in SODIUM CHLORIDE 0.9% 200 ML EPIDURAL PRN (16:40)
--- NOTE | 2022-09-15 16:48 | P.PN ---
Subjective Progress Note Date: 09/15/22 77-year-old male who with history of atrial fibrillation, TIA/CVA, hyperlipidemia, hypertension who underwent colonoscopy and biopsy for a colon mass; patient was being evaluated for lung nodule with a PET scan which showed sigmoid colon mass; patient was admitted to the hospital on 09/07/2022 and underwent colonoscopy.. Patient has no bowel related complaints however his prep that he took last night led to significant bloating and cramps with a delay in stool function. He states he does occasionally see blood in his stool. Biopsy came back positive for cancer and patient was admitted and underwent low anterior sigmoid resection and umbilical hernia repair Hospital medicine is consulted for medical management postoperatively Objective - Vital Signs Vital signs: Vital Signs Temp 97.5 F L 09/15/22 07:11 Pulse 83 09/15/22 07:11 Resp 16 09/15/22 07:11 BP 114/68 09/15/22 07:11 Pulse Ox 99 09/15/22 07:11 FiO2 Intake & Output 09/14/22 09/15/22 09/15/22 18:59 06:59 18:59 Intake Total 1550.083 930 Output Total 175 800 Balance 1375.083 130 Weight 87 kg Intake: IV 1550 Intake, IV Titration 0.083 Amount Ropivacaine 250 mg 0.083 Hydromorphone (Pf) 5 mg In Sodium Chloride 0.9% 200 ml @ Per Protocol EPIDURAL .Q0M PRN Rx#: [id number] Oral 930 Output: Urine 100 800 Estimated Blood Loss 75 Other: Voiding Method Indwelling Catheter Indwelling Catheter - Exam GENERAL: The patient is alert and oriented x3, not in any acute distress. Well developed, well nourished. HEENT: Pupils are round and equally reacting to light. EOMI. No scleral icterus. No conjunctival pallor. Normocephalic, atraumatic. No pharyngeal erythema. No t hyromegaly. CARDIOVASCULAR: S1 and S2 present. No murmurs, rubs, or gallops. PULMONARY: Chest is clear to auscultation, no wheezing or crackles. ABDOMEN: Soft, nontender, nondistended, normoactive bowel sounds. No palpable organomegaly. MUSCULOSKELETAL: No joint swelling or deformity. EXTREMITIES: No cyanosis, clubbing, or pedal edema. NEUROLOGICAL: Gross neurological examination did not reveal any focal deficits. SKIN: No rashes. - Labs CBC & Chem 7: 09/15/22 05:11 09/15/22 05:11 Labs: Abnormal Lab Results - Last 24 Hours (Table) 09/15/22 09/15/22 Range/Units 05:11 05:11 WBC 13.28 H (4.50-10.00) X 10*3/uL Neutrophils # 11.31 H (1.80-7.70) X 10*3/uL Eosinophils # 0 L (0.04-0.35) X 10*3/uL Anion Gap 9.90 L (10.00-18.00) mmol/L Glucose 115 H (70-110) mg/dL Calcium 8.2 L (8.7-10.3) mg/dL Assessment and Plan Assessment: 1. Sigmoid colon cancer; patient is status post low anterior sigmoid resection and umbilical hernia repair; POD #0 - Your management 2. Hypertension; metoprolol 50 mg twice a day and Maxzide 30 7. 525 milligrams twice a day; amlodipine 10 mg by mouth daily at bedtime 3. Hyperlipidemia; patient takes Lipitor 40 mg by mouth daily at bedtime 4. Atrial fibrillation; on metoprolol 50 mg twice a day for rate control and Eliquis for anticoagulation 5. TIA/CVA; patient is on anticoagulation with Eliquis and Lipitor 6. Gastroesophageal reflux disease; omeprazole 20 mg twice a day -- We will plan to hold off on oral medications. Patient is stable for oral intake DVT prophylaxis; SCDs/ resume systemic anticoagulation once cleared by surgery CODE STATUS; full code
[2022-09-16] MEDS: HEPARIN SODIUM,PORCINE/PF 5,000 UNIT/0.5 ML SYRINGE SQ SCH ×4 (08:52→23:27)
[2022-09-16] MEDS: FAMOTIDINE 20 MG/2 ML VIAL IV SCH ×2 (08:52→21:39)
[2022-09-16] MEDS: METOPROLOL TARTRATE 25 MG TAB PO SCH ×2 (08:53→21:39)
[2022-09-16] MEDS: ALVIMOPAN 12 MG CAPSULE PO SCH ×2 (08:53→21:39)
[2022-09-16] MEDS: D5-0.45% NACL WITH KCL 20MEQ/L 1,000 ML IV SCH ×3 (08:53→16:56)
[2022-09-16 09:51] LABS: Basophils # (A) 0.04 X 10*3/uL (0.00-0.10); Basophils % (A) 0.4 %; Eosinophils # (A) 0.08 X 10*3/uL (0.04-0.35); Eosinophils % (A) 0.9 %; HCT 37.5 % (39.6-50.0); HGB 12.1 g/dL (13.0-17.0); Immature Grans, Automated 0.7 %; Lymphocytes # (A) 2.27 X 10*3/uL (0.90-5.00); Lymphocytes % (A) 24.9 %; MCH 28.7 pg (27.0-32.0); MCHC 32.3 g/dL (32.0-37.0); MCV 88.9 fL (80.0-97.0); Mean Platelet Volume 10.3 fL (9.5-12.2); Monocytes # (A) 0.97 X 10*3/uL (0.20-1.00); Monocytes % (A) 10.6 %; NRBC Per 100 WBC 0 /100 WBCS (0.0-0.0); Neutrophils % (A) 62.5 %; Platelet Count 232 X 10*3/uL (140-440); RBC 4.22 X 10*6/uL (4.40-5.60); RDW 14.6 % (11.5-14.5); WBC 9.12 X 10*3/uL (4.50-10.00)
--- NOTE | 2022-09-16 10:26 | P.PN ---
Progress Note - Text Progress Note Date: 09/16/22 (0327) Anesthesia Postop day #2 Status post low anterior resection with epidural #3 Patient seen and examined. Doing well without current complaint. VAS 0 out of 10 at rest, 6 out of 10 with max forward flexion. Mild nausea yesterday but no pruritus or vomiting or nausea current. Ropivacaine 0.1% with Dilaudid 20 mcg/mL at 6 mL an hour. Objective: Vital signs reviewed Lungs: Good chest excursion Abdomen: Appears nondistended Other: Epidural Site Intact without induration. Dressing intact Neuro: No apparent motor block. Sensory within normal limits. Assessment: Status post low anterior resection day #2 Plan: Continue current care with your medical management. Anticipate discontinued catheter tomorrow. Spoke with nurse asked to hold subcu heparin in a.m. tomorrow..
--- NOTE | 2022-09-16 10:54 | P.PN ---
Subjective from Records 77-year-old male who with history of atrial fibrillation, TIA/CVA, hyperlipidemia, hypertension who underwent colonoscopy and biopsy for a colon mass; patient was being evaluated for lung nodule with a PET scan which showed sigmoid colon mass; patient was admitted to the hospital on 09/07/2022 and underwent colonoscopy.. Patient has no bowel related complaints however his prep that he took last night led to significant bloating and cramps with a delay in stool function. He states he does occasionally see blood in his stool. Biopsy came back positive for cancer and patient was admitted and underwent low anterior sigmoid resection and umbilical hernia repair Hospital medicine is consulted for medical management postoperatively 09/16/2022 Patient is with known history of colon cancer status post lower anterior resection of the sigmoid colon with repair of the umbilical hernia. Today is postoperative day #2 Earlier morning patient developed high-grade fever of 101 Patient currently tolerates liquid diet well Abdominal pain looks controlled but patient rated at 7-8/10 in severity Patient reports coughing and each time it hurts his surgical incision site He is passing gas but no bowel movement Patient had leukocytosis 13,001 down to 9.2 but also there is evidence of a moderately patient He still had epidural pain catheter in the morning Patient currently on D5 half-normal saline at 1 25 L/h and metoprolol 25 mg t wice a day. He going to add Augmentin syrup twice a day Objective - Vital Signs Vital signs: Vital Signs Temp 99.2 F 09/16/22 07:44 Pulse 71 09/16/22 07:44 Resp 16 09/16/22 07:44 BP 117/70 09/16/22 07:44 Pulse Ox 91 L 09/16/22 07:44 FiO2 Intake & Output 09/15/22 09/16/22 09/16/22 18:59 06:59 18:59 Intake Total 142.2 Output Total 200 Balance 142.2 -200 Intake: Intake, IV Titration 142.2 Amount Ropivacaine 250 mg 142.2 Hydromorphone (Pf) 5 mg In Sodium Chloride 0.9% 200 ml @ Per Protocol EPIDURAL .Q0M PRN Rx#: [id number] Output: Urine 200 Other: Voiding Method Indwelling Catheter Indwelling Catheter Indwelling Catheter # Bowel Movements 1 - Exam GENERAL: The patient is alert and oriented x3, not in any acute distress. Well developed, well nourished. HEENT: Pupils are round and equally reacting to light. EOMI. No scleral icterus. No conjunctival pallor. Normocephalic, atraumatic. No pharyngeal erythema. No thyromegaly. CARDIOVASCULAR: S1 and S2 present. No murmurs, rubs, or gallops. PULMONARY: Chest is clear to auscultation, no wheezing or crackles. -ABDOMEN: Soft, nontender, nondistended, normoactive bowel sounds. No palpable organomegaly. Surgical wound with Pitressin in a Place, rest of exam is deferred to surgery primary team MUSCULOSKELETAL: No joint swelling or deformity. EXTREMITIES: No cyanosis, clubbing, or pedal edema. NEUROLOGICAL: Gross neurological examination did not reveal any focal deficits. SKIN: No rashes. no petechiae. - Labs CBC & Chem 7: 09/16/22 06:30 09/15/22 05:11 Labs: Abnormal Lab Results - Last 24 Hours (Table) 09/16/22 Range/Units 06:30 RBC 4.22 L (4.40-5.60) X 10*6/uL Hgb 12.1 L (13.0-17.0) g/dL Hct 37.5 L (39.6-50.0) % RDW 14.6 H (11.5-14.5) % Immature Gran # 0.06 H (0.00-0.04) X 10*3/uL Assessment and Plan Assessment: 1. Sigmoid colon cancer; patient is status post low anterior sigmoid resection and umbilical hernia repair; POD #2 - Continue with pain management - Continue with liquid diet and advance as per surgery team 2. fever, with suspected intra-abdominal infection, monitor labs and vitals, start Augmentin COPD ID 3. Hyperlipidemia; patient takes Lipitor 40 mg by mouth daily at bedtime 4. Atrial fibrillation; on metoprolol 50 mg twice a day for rate control and Eliquis for anticoagulation 5. TIA/CVA; patient is on anticoagulation with Eliquis and Lipitor 6. Gastroesophageal reflux disease; omeprazole 20 mg twice a day 7. Hypertension; metoprolol 50 mg twice a day and Maxzide 30 7. 525 milligrams twice a day; amlodipine 10 mg by mouth daily at bedtime DVT prophylaxis; SCDs/ subcu heparin GI prophylaxis: Pepcid CODE STATUS; full code thank you for consulting us, we will follow up with the
[2022-09-16 11:24] LABS: African American GFR (CKD) 95.8 (60.0-200.0); Anion Gap 7.4 mmol/L (10.00-18.00); BUN/Creat Ratio 9.78 Ratio (12.00-20.00); Blood Urea Nitrogen 8.8 mg/dL (9.0-27.0); Carbon Dioxide 26.6 mmol/L (20.0-27.5); Non-African American GFR(CKD) 82.7 (60.0-200.0); Potassium 4.1 mmol/L (3.5-5.5)
[2022-09-16] MEDS: AMOXIC-POT CLAV 200-28.5MG/5ML 100 ML BOTTLE PO SCH ×2 (11:59→23:26)
--- NOTE | 2022-09-16 13:56 | P.PN ---
Subjective Progress Note Date: 09/16/22 CHIEF COMPLAINT: Sigmoid colon cancer HISTORY OF PRESENT ILLNESS: Patient is postop day #2 status post lower anterior sigmoid resection and repair of umbilical hernia. Patient currently has epidural in place for pain control. Patient does report abdominal pain at the incision site which is worse with movement. He does report being more bloated. He is having flatus. He does report some nausea. No vomiting. Did have a fever of 101.6 during the night. Currently afebrile. WBC is down from 13.28- 9.12 hemoglobin is 12.1 platelets 232 sodium 135 potassium 4.1 creatinine 0.9 PHYSICAL EXAM: VITAL SIGNS: Reviewed. GENERAL: Well-developed in no acute distress. HEENT: No sclera icterus. Extraocular movements grossly intact. Moist buccal mucosa. Head is atraumatic, normocephalic. ABDOMEN: Soft. Mildly distended. Incisional dressing small area of saturation noted at the distal aspect of dressing NEUROLOGIC: Alert and oriented. Cranial nerves II through XII grossly intact. ASSESSMENT: 1. Sigmoid colon cancer an umbilical hernia status post lower anterior sigmoid resection and repair of umbilical hernia 2. Fever likely due to atelectasis PLAN: -Continue clear liquid diet -Epidural scheduled to be discontinued tomorrow -Continue IV fluids -Encourage patient to ambulate -Encourage patient to use incentive spirometer -Encouraged pulmonary toileting -GI prophylaxis Pepcid and DVT prophylaxis subcu heparin Physician Car Trimmer note has been reviewed by physician. Signing provider agrees with the documented findings, assessment, and plan of care. I have personally seen and examined the patient, reviewed the COCKTAIL SERVER /PAs history, exam and MDM and agree with the assessment and plan as written. Based on total visit time, I have performed more than 50% of the visit. As above: Patient doing well today. He did have a fever last night. He says he has been coughing some. Abdomen is soft. Labs noted. Continue pulmonary toilet. Ambulate. Objective - Vital Signs Vital signs: Vital Signs Temp 97.7 F 09/16/22 13:50 Pulse 72 09/16/22 13:50 Resp 16 09/16/22 13:50 BP 126/70 09/16/22 13:50 Pulse Ox 97 09/16/22 13:50 FiO2 Intake & Output 09/15/22 09/16/22 09/16/22 18:59 06:59 18:59 Intake Total 142.2 Output Total 200 Balance 142.2 -200 Intake: Intake, IV Titration 142.2 Amount Ropivacaine 250 mg 142.2 Hydromorphone (Pf) 5 mg In Sodium Chloride 0.9% 200 ml @ Per Protocol EPIDURAL .Q0M PRN Rx#: [id number] Output: Urine 200 Other: Voiding Method Indwelling Catheter Indwelling Catheter Indwelling Catheter # Bowel Movements 1 - Labs CBC & Chem 7: 09/16/22 06:30 09/16/22 06:30 Labs: Abnormal Lab Results - Last 24 Hours (Table) 09/16/22 09/16/22 Range/Units 06:30 06:30 RBC 4.22 L (4.40-5.60) X 10*6/uL Hgb 12.1 L (13.0-17.0) g/dL Hct 37.5 L (39.6-50.0) % RDW 14.6 H (11.5-14.5) % Immature Gran # 0.06 H (0.00-0.04) X 10*3/uL Anion Gap 7.40 L (10.00-18.00) mmol/L BUN 8.8 L (9.0-27.0) mg/dL BUN/Creatinine Ratio 9.78 L (12.00-20.00) Ratio Calcium 8.0 L (8.7-10.3) mg/dL
[2022-09-16] MEDS: ATORVASTATIN 40 MG TAB PO SCH (21:39)
[2022-09-16] MEDS: diazePAM 5 MG TAB PO PRN (21:39)
[2022-09-16] MEDS ORDERED: ACETAMINOPHEN TAB 325 MG TAB PO STA (23:04)
--- NOTE | 2022-09-17 07:55 | P.PN ---
Progress Note - Text Progress Note Date: 09/17/22 ([id number]) Anesthesia Postop day #3 Status post anterior resection with epidural day #4 Patient seen and examined. Doing well without complaint. VAS 4 out of 10. No nausea vomiting or pruritus. Ropivacaine 0.1% with Dilaudid 20 mcg/mL at 4 mL an hour. Objective: Vital signs reviewed Lungs: Good chest excursion Abdomen: Appears nondistended Other: Epidural Site Intact without induration. Dressing intact Neuro: No apparent motor block. Sensory within normal limits. Assessment: Status post anterior resection postop day #3 Plan: Continue current care with your medical management. Anticipate discontinue catheter today. Communicated with nurse. Communicated heparin must be held for 6 hours prior to pull.
[2022-09-17] MEDS: D5-0.45% NACL WITH KCL 20MEQ/L 1,000 ML IV SCH ×2 (08:05→08:26)
[2022-09-17] MEDS: METOPROLOL TARTRATE 25 MG TAB PO SCH ×2 (08:25→20:16)
[2022-09-17] MEDS: AMOXIC-POT CLAV 200-28.5MG/5ML 100 ML BOTTLE PO SCH ×2 (08:26→20:16)
[2022-09-17] MEDS: FAMOTIDINE 20 MG/2 ML VIAL IV SCH ×2 (08:26→20:16)
[2022-09-17 09:23] VITALS: BMI 27.5
--- NOTE | 2022-09-17 11:12 | P.PN ---
Subjective Progress Note Date: 09/17/22 CHIEF COMPLAINT: Sigmoid colon cancer HISTORY OF PRESENT ILLNESS: Patient is postop day #3 status post lower anterior sigmoid resection and repair of umbilical hernia. Patient's epidural and Stock catheter scheduled to be discontinued today. Patient reports that his abdominal pain is decreasing. He is having flatus. Did have a small bowel movement yesterday. He does have episodes of intermittent nausea. He does report his abdominal bloating has shown improvement. Patient had a low-grade temp of 100.1 last night. WBC 9.12 yesterday. Patient does report having productive cough. PHYSICAL EXAM: VITAL SIGNS: Reviewed. GENERAL: Well-developed in no acute distress. HEENT: No sclera icterus. Extraocular movements grossly intact. Moist buccal mucosa. Head is atraumatic, normocephalic. ABDOMEN: Soft. Nondistended. Incision site clean dry and intact. There is some dried blood noted. NEUROLOGIC: Alert and oriented. Cranial nerves II through XII grossly intact. ASSESSMENT: 1. Sigmoid colon cancer an umbilical hernia status post lower anterior sigmoid resection and repair of umbilical hernia 2. Fever likely due to atelectasis PLAN: -Advance diet to full liquids -Epidural and Stock catheter scheduled to be discontinued today -Add oral pain medication and IV Dilaudid as needed -Discontinue IV fluid -Encourage patient to ambulate -Encourage patient to use incentive spirometer -Encouraged pulmonary toileting -GI prophylaxis Pepcid and DVT prophylaxis subcu heparin Physician Tin Tie Machine Operator Automatic note has been reviewed by physician. Signing provider agrees with the documented findings, assessment, and plan of care. I have personally seen and examined the patient, reviewed the SURGICAL GARMENT ASSEMBLER /PAs history, exam and MDM and agree with the assessment and plan as written. Based on total visit time, I have performed more than 50% of the visit. As above: Patient doing well today. Still passing flatus. Pain improved. Agree with advancing diet. Ambulate. Objective - Vital Signs Vital signs: Vital Signs Temp 97.5 F L 09/17/22 07:20 Pulse 69 09/17/22 07:20 Resp 18 09/17/22 07:20 BP 122/75 09/17/22 07:20 Pulse Ox 96 09/17/22 07:20 FiO2 Intake & Output 09/16/22 09/17/22 09/17/22 18:59 06:59 18:59 Intake Total 167.7 Output Total 1400 850 900 Balance -1400 -682.3 -900 Weight 87 kg Intake: Intake, IV Titration 167.7 Amount Ropivacaine 250 mg 167.7 Hydromorphone (Pf) 5 mg In Sodium Chloride 0.9% 200 ml @ Per Protocol EPIDURAL .Q0M PRN Rx#: [id number] Output: Urine 1400 850 900 Uretheral (Stock) 900 Other: Voiding Method Indwelling Catheter Indwelling Catheter # Bowel Movements 1 - Labs CBC & Chem 7: 09/16/22 06:30 09/16/22 06:30 Labs: Abnormal Lab Results - Last 24 Hours (Table) 09/16/22 Range/Units 06:30 Anion Gap 7.40 L (10.00-18.00) mmol/L BUN 8.8 L (9.0-27.0) mg/dL BUN/Creatinine Ratio 9.78 L (12.00-20.00) Ratio Calcium 8.0 L (8.7-10.3) mg/dL
[2022-09-17 13:26] LABS: HCT 42.7 % (39.0-53.0); HGB 13.5 gm/dL (13.0-17.5); Hypochromasia Slight; MCHC 31.7 g/dL (31.0-37.0); MCV 91.4 fL (80.0-100.0); Mean Platelet Volume 8.3; Platelet Count 258 k/uL (150-450); RBC 4.67 m/uL (4.30-5.90); RDW 13.9 % (11.5-15.5); WBC 6.7 k/uL (3.8-10.6)
[2022-09-17] MEDS ORDERED: BACITRACIN OINT 1 EACH PACKET TOPICAL ONE (14:07)
[2022-09-17] MEDS: HEPARIN SODIUM,PORCINE/PF 5,000 UNIT/0.5 ML SYRINGE SQ SCH ×2 (16:48→23:49)
[2022-09-17] MEDS: ATORVASTATIN 40 MG TAB PO SCH (20:16)
[2022-09-18 03:28] VITALS: RESP 16
[2022-09-18] MEDS: HYDROcodone/APAP 5-325MG 1 EACH TAB PO PRN ×2 (06:15→12:17)
[2022-09-18] MEDS: HEPARIN SODIUM,PORCINE/PF 5,000 UNIT/0.5 ML SYRINGE SQ SCH (09:00)
[2022-09-18] MEDS: METOPROLOL TARTRATE 25 MG TAB PO SCH (09:00)
[2022-09-18] MEDS: AMOXIC-POT CLAV 200-28.5MG/5ML 100 ML BOTTLE PO SCH (09:01)
[2022-09-18] MEDS: FAMOTIDINE 20 MG/2 ML VIAL IV SCH (09:03)
[2022-09-18 09:11] LABS: Basophils # (A) 0.03 X 10*3/uL (0.00-0.10); Basophils % (A) 0.3 %; Eosinophils # (A) 0.25 X 10*3/uL (0.04-0.35); Eosinophils % (A) 2.9 %; HCT 45.6 % (39.6-50.0); HGB 14.4 g/dL (13.0-17.0); Immature Grans, Automated 0.2 %; Lymphocytes # (A) 1.57 X 10*3/uL (0.90-5.00); Lymphocytes % (A) 18.1 %; MCH 28.2 pg (27.0-32.0); MCHC 31.6 g/dL (32.0-37.0); MCV 89.2 fL (80.0-97.0); Mean Platelet Volume 10.1 fL (9.5-12.2); Monocytes # (A) 0.62 X 10*3/uL (0.20-1.00); Monocytes % (A) 7.2 %; NRBC Per 100 WBC 0 /100 WBCS (0.0-0.0); Neutrophils # (A) 6.18 X 10*3/uL (1.80-7.70); Neutrophils % (A) 71.3 %; Platelet Count 291 X 10*3/uL (140-440); RBC 5.11 X 10*6/uL (4.40-5.60); RDW 14.2 % (11.5-14.5); WBC 8.67 X 10*3/uL (4.50-10.00)
--- NOTE | 2022-09-18 12:14 | P.DS ---
Providers Date of admission: 09/14/22 10:33 Expected date of discharge: 09/18/22 Attending physician: Ruben Nick Consults: 09/14/22 15:58 Consult Physician Routine Consulting Provider: Elina Amador Consult Reason/Comments: Medical management Do you want consulting provider notified?: Yes Primary care physician: Justin Coles [facility] Course: 77-year-old male admitted for low anterior resection last Tuesday. Underwent resection of the sigmoid colon without difficulty. Postoperatively has done well. His epidural and Stock catheter was removed 2 days ago. Yesterday he had some oozing of blood from his incision that stopped spontaneously. Today he is doing well. He is moving his bowels. Tolerating his diet. Pain is controlled [place]. We'll discharge at this time. Follow-up one week. Plan - Discharge Summary Discharge Rx Participant: No New Discharge Prescriptions: No Action Ferrous Sulfate [Iron (65 MG Elemental)] 1 tab PO DAILY Thiamine [Vitamin B-1] 100 mg PO DAILY Folic Acid 800 mcg PO DAILY diazePAM [Valium] 5 mg PO BID allopurinoL 300 mg PO DAILY Triamterene/Hydrochlorothiazid [Maxzide 37.5-25] 1 tab PO BID Clotrimazole/Betamethasone Dip [Clotrimazole-Betamethasone Lot] 1 applic TOPICAL DAILY PRN PRN Reason: Skin Irritation amLODIPine [Norvasc] 10 mg PO HS Multivitamins, Thera [Multivitamin (formulary)] 1 tab PO DAILY Cholecalciferol [Vitamin D3 (125 Mcg = 5000 Iu)] 125 mcg PO DAILY Loratadine [Claritin] 5 mg PO BID PRN PRN Reason: Allergy Symptoms Famotidine [Pepcid] 20 mg PO BID Atorvastatin [Lipitor] 40 mg PO HS Omeprazole 20 mg PO BID Apixaban [Eliquis] 5 mg PO BID Magnesium 250 mg PO DAILY Metoprolol Tartrate [Lopressor] 50 mg PO BID Discharge Medication List Apixaban [Eliquis] 5 mg PO BID 09/03/22 [History] Atorvastatin [Lipitor] 40 mg PO HS 09/03/22 [History] Cholecalciferol [Vitamin D3 (125 Mcg = 5000 Iu)] 125 mcg PO DAILY 09/03/22 [History] Clotrimazole/Betamethasone Dip [Clotrimazole-Betamethasone Lot] 1 applic TOPICAL DAILY PRN 09/03/22 [History] Famotidine [Pepcid] 20 mg PO BID 09/03/22 [History] Ferrous Sulfate [Iron (65 MG Elemental)] 1 tab PO DAILY 09/03/22 [History] Folic Acid 800 mcg PO DAILY 09/03/22 [History] Loratadine [Claritin] 5 mg PO BID PRN 09/03/22 [History] Magnesium 250 mg PO DAILY 09/03/22 [History] Omeprazole 20 mg PO BID 09/03/22 [History] Thiamine [Vitamin B-1] 100 mg PO DAILY 09/03/22 [History] Triamterene/Hydrochlorothiazid [Maxzide 37.5-25] 1 tab PO BID 09/03/22 [History] allopurinoL 300 mg PO DAILY 09/03/22 [History] amLODIPine [Norvasc] 10 mg PO HS 09/03/22 [History] diazePAM [Valium] 5 mg PO BID 09/03/22 [History] Metoprolol Tartrate [Lopressor] 50 mg PO BID 09/10/22 [History] Multivitamins, Thera [Multivitamin (formulary)] 1 tab PO DAILY 09/10/22 [History]
[2022-09-18 15:05] VITALS: BP 117/75; PULSE 70; TEMP 98
== END 2022-09-18 15:29 | disposition home or self-care (01) | DRG 330 ==
LOC: 2ORMAIN 10:33 → 4SSUR 14:47
PROVIDERS: ADMIT Surgery; ATTEND Surgery
PROC: 0DTN0ZZ Resection of Sigmoid Colon, Open Approach (ICD-10-PCS; principal; 2022-09-14 12:30)
PROC: 0DJD8ZZ Inspection of Lower Intestinal Tract, Via Natural or Artificial Opening Endoscopic (ICD-10-PCS; principal; 2022-09-14 12:30)
PROC: 0WQF0ZZ Repair Abdominal Wall, Open Approach (ICD-10-PCS; principal; 2022-09-14 12:30)
DX: C18.7 Malignant neoplasm of sigmoid colon (principal); J98.11 Atelectasis; D72.829 Elevated white blood cell count, unspecified; E78.5 Hyperlipidemia, unspecified; I10 Essential (primary) hypertension; I48.0 Paroxysmal atrial fibrillation; R50.9 Fever, unspecified; K21.9 Gastro-esophageal reflux disease without esophagitis; K42.9 Umbilical hernia without obstruction or gangrene; F41.9 Anxiety disorder, unspecified; M19.90 Unspecified osteoarthritis, unspecified site; R41.3 Other amnesia; R29.90 Unspecified symptoms and signs involving the nervous system; M10.9 Gout, unspecified; I49.5 Sick sinus syndrome; G43.109 Migraine with aura, not intractable, without status migrainosus; R91.1 Solitary pulmonary nodule; Z79.01 Long term (current) use of anticoagulants; Z87.891 Personal history of nicotine dependence; Z86.73 Personal history of transient ischemic attack (TIA), and cerebral infarction without residual deficits; Z79.899 Other long term (current) drug therapy; Z71.3 Dietary counseling and surveillance; Z28.310 Unvaccinated for COVID-19; Z91.81 History of falling; Z95.0 Presence of cardiac pacemaker; Z88.4 Allergy status to anesthetic agent
CPT/HCPCS: 80048; 85025; 85027; 86850; 86900; 86901; 87040; 88309

== ENCOUNTER → 2022-11-26 | Outpatient (CLI) | payer MEDICARE ==
[2022-11-26 15:08] LABS: African American GFR (CKD) >90 (>60 ml/min/1.73 sqM); Blood Urea Nitrogen 29 mg/dL (9-20); Non-African American GFR(CKD) 79 (>60 ml/min/1.73 sqM)
--- NOTE | 2022-11-26 18:02 | CT ---
EXAMINATION TYPE: CT chest w con DATE OF EXAM: 11/26/2022 COMPARISON: 08/06/2022 HISTORY: 77-year-old male lung nodule TECHNIQUE: Contiguous axial scanning of the chest after the administration of 70ml mL of Isovue 300. Coronal/sagittal reconstructions performed. CT DLP: 521mGycm. Automatic exposure control utilized for a dose reduction. FINDINGS: Heart normal size with trace anterior pericardial fluid. Left anterior chest wall pacemaker generator with right atrial and right ventricular leads. Borderline ectasia ascending aorta 3.5 cm. Minimal atherosclerotic arch calcifications with conventio nal arch vessel branching anatomy. Scattered small lymph nodes are unchanged. No thoracic lymphadenopathy by CT size criteria. Redemonstrated pulmonary nodule posterior right lower lobe currently measuring 1.4 cm versus 1.2 cm, previously. 7 mm right upper lobe pulmonary nodule, axial image 21 previously measured 5 mm. Large groundglass focus superior segment left lower lobe. This is a bilobed focus. The more superior portion measures 3.1 cm versus 2.9 cm, previously. It includes new and enlarging solid nodular compon ents now measuring up to 8 mm versus 5 mm, previously. The more confluent inferior component measures 1.9 cm versus 1.5 cm, previously. Minimal emphysematous change. No new consolidation or pleural effusion. Mild to moderate bilateral gynecomastia. Visualized upper abdomen shows a benign renal cyst measuring 2.6 cm on the right. Mild degenerative disc disease mid to lower thoracic spine. IMPRESSION: 1. Bilobed groundglass focus superior segment left lower lobe redemonstrated. There is gradual, progr essive enlargement. Additionally, there are associated new and enlarging solid nodular components wit hin the groundglass. Adenomatous hyperplasia with malignant transformation is considered. Recommend p [facility] medicine referral for further management. 2. A pulmonary nodule in the superior segment of the right lower lobe also shows gradual enlargement, now 1.4 cm versus 1.2 cm, 4 months ago. Small early lung cancer remains to be excluded. 3. A third pulmonary nodule right upper lobe 7 mm now versus 5 mm, 4 months ago. Ongoing close survei llance advised.
== END | disposition home or self-care (01) ==
LOC: RADCTMAIN 14:30
PROVIDERS: ATTEND Internal Medicine Critical Care Medicine
DX: R91.1 Solitary pulmonary nodule (principal)
CPT/HCPCS: 82565; 84520; 71260; 36415; Q9967

== ENCOUNTER 2022-12-30 11:31 | Day surgery (SDC) | payer MEDICARE ==
[~2022-12-30 11:31] MED LIST changes: -ACETAMINOPHEN TAB 500 MG TAB PO PRN; -ALVIMOPAN 12 MG CAPSULE PO PRN; +DEXAMETHASONE SOD PHOSPHATE 4 MG/ML 1 ML VIAL IV ONE; -HEPARIN SODIUM,PORCINE/PF 5,000 UNIT/0.5 ML SYRINGE SQ PRN; +HYDROmorphone 0.5 MG/0.5 ML SYRINGE IVP PRN; +LACTATED RINGERS 1,000 ML IV SCH; +ONDANSETRON 4 MG/2 ML VIAL IVP ONE; -metroNIDAZOLE-NS PMX 500 MG in SALINE 1 100ML.BAG IVPB PRN
--- NOTE | 2022-12-30 13:32 | CT ---
EXAMINATION TYPE: CT chest wo con CT DLP: 690 mGycm, Automated exposure control for dose reduction was used. DATE OF EXAM: 12/30/2022 1:16 PM COMPARISON: CT chest 11/26/2022. CLINICAL INDICATION:Male, 77 years old with history of PRE-OP: BRONCHOSCOPY. ION protocol.;, pre bron chial navigation TECHNIQUE: Multiple axial images were obtained through the chest. Sagittal and coronal reformats were created for review. Contrast used: none Oral contrast used: none. FINDINGS: LUNGS/ PLEURA: Redemonstration of mixed groundglass and solid left lower lobe superior segment pulmon [place] nodule measuring groundglass component up to 3.2 x 2.9 cm with more solid components inferiorly i n with groundglass opacities in between the solid portions. No additional groundglass nodules identif ied. There is right lower lobe 13 mm pulmonary nodule and in the right upper lobe somewhat spiculated 6 mm pulmonary nodule No focal consolidation, pneumothorax or pleural effusion. AIRWAY: Patent and unremarkable. HEART: Size within normal limits. The heart is mildly enlarged for size. There is severe coronary edna cifications. MEDIASTINUM: No gross evidence of adenopathy. VASCULATURE: No aortic aneurysm. MUSCULOSKELETAL: No acute osseous abnormalities SOFT TISSUES/LYMPH NODES: Left chest cardiac conduction device with leads terminating in the right ve ntricle and right atrium. Mild gynecomastia changes. LOWER NECK: No significant findings. UPPER ABDOMEN: Right renal cyst. IMPRESSION: 1. 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 No evidence for lymphadenopathy. 2. Right lower lobe solid 13 mm pulmonary nodule. 3. Right upper lobe 6 mm spiculated 6 mm pulmonary nodule. 4. No lymphadenopathy at this time.
[2022-12-30] MEDS ORDERED: SODIUM CHLORIDE 4MEQ/ML 30 ML VIAL IV ONE (14:00)
[2022-12-30] MEDS ORDERED: ROCURONIUM 10 MG/ML (5 ML VIAL) IV ONE (14:00)
[2022-12-30] MEDS ORDERED: NEOSTIGMINE 1 MG/ML 10 ML VIAL ONE (14:00)
[2022-12-30] MEDS ORDERED: fentaNYL (PF) 50 MCG/ML 2 ML AMP ONE (14:00)
[2022-12-30] MEDS ORDERED: MIDAZOLAM 2 MG/2 ML VIAL ONE (14:00)
[2022-12-30] MEDS ORDERED: LIDOCAINE 2% INJ 20 MG/ML (2 ML VIAL) ONE (14:00)
[2022-12-30] MEDS ORDERED: SUCCINYLCHOLINE CHLORIDE 200 MG/10 ML VIAL IV ONE (14:00)
[2022-12-30] MEDS ORDERED: PROPOFOL 10 MG/ML 20 ML VIAL IV ONE (14:00)
[2022-12-30 16:25] VITALS: RESP 16; TEMP 97.1
--- NOTE | 2022-12-30 16:51 | FL ---
EXAMINATION TYPE: FL bronchoscopy DATE OF EXAM: 12/30/2022 CLINICAL HISTORY: Abnormal CT. TECHNIQUE: Fluoroscopy. COMPARISON: CT earlier today.. FINDINGS: Fluoroscopic guidance was provided during bronchoscopy procedure performed by Dr. Cao . A total of 541 seconds of fluoroscopic time was utilized during the procedure and 8 spot images wa s acquired. Please refer to procedure note for further details. IMPRESSION: As Above.
[2022-12-30 17:19] VITALS: BP 136/69; PULSE 63
--- NOTE | 2022-12-30 17:21 | XR ---
EXAMINATION TYPE: XR chest 1V DATE OF EXAM: 12/30/2022 COMPARISON: Chest CT earlier today HISTORY: Post bronchoscopy with sampling TECHNIQUE: Single AP portable frontal semiupright view of the chest is obtained. FINDINGS: Note visualized pneumothorax after bronchoscopy with sampling. Mild right basilar linear sc arring and/or atelectasis. Somewhat low lung volumes. The cardiac silhouette size is upper limits of normal with dual lead pacemaker. The osseous structures are intact. IMPRESSION: As above.
--- NOTE | 2022-12-30 20:22 | P.PCN ---
Date of Procedure: 12/30/22 Preoperative Diagnosis: Left lower lobe mixed solid and groundglass pulmonary opacity, measuring 3.2 cm in size Right lower lobe solid pulmonary nodule, measuring 1.4 cm in size. Postoperative Diagnosis: Same Operative Findings: Date of Procedure: 12/30/22 Procedure(s) Performed: Flexible bronchoscopy Robotic-assisted bronchoscopy and addition to radial ultrasound evaluation of the lung mass- ION robotic system Robotic-assisted test monitor needle aspirate, transbronchial biopsies, transbronchial brushing of the left lower lobe mass mass in addition to a bronchioloalveolar lavage Robotic-assisted test monitor needle aspirate, transbronchial biopsies, transbronchial brushing of the right lower lobe mass mass in addition to a bronchioloalveolar lavage Anesthesia: SIDNEY Surgeon: Ida Cao Estimated Blood Loss (ml): 0 Pathology: other Condition: stable Disposition: same day Operative Findings: A physical exam was performed. Informed consent was obtained from the patient after explaining all the risks (pneumothorax, life threatening bleeding, infection and adverse effects due to medications), benefits and alternatives to the procedure which the patient appeared to understand and so stated. The patient was connected to the monitoring devices. General anesthesia was induced and the patient was intubated by anesthesia. A final timeout was performed and the procedure confirmed by the attending staff bronchoscopist. The bronchoscope was inserted and the airway examined. The flexible bronchoscope was removed and the robotic bronchoscope was inserted. Registration was completed. I next guided the robotic bronchoscope using the navigation system into the left lower lobe posterior segment segment. Once in proper position, the bronchoscope was frozen. The radial EBUS probe was placed through the bronchoscope and confirmed abnormal u/s images vs normal lung. A needle was placed through the working channel and under fluoroscopic guidance, we sampled the area thought to have the mass twice. We then used a cloud biopsy pattern with ultrasound confirmation for 4 additional passes with the needle. U/S evaluation was then used to reconfirm location. Forceps were next introd uced through working channel and extended the appropriate distance and 3 transbronchial biopsies were performed using fluoroscopic guidance. The u/s probe was then reinserted to confirm location. When confirmed this process was repeated for a total of 6 transbronchial biopsies. After reassessment with EBUS, a brush was placed through the extendable working channel for 1 pass with fluoroscopic guidance. U/S evaluation was then used to confirm location. 40ml of saline was then instilled into the area of the lesion. The robotic bronchoscope was removed and the airway inspected with a flexible bronchoscope and 10 ml of effluent from the BAL was collected. The flexible bronchoscope was removed and the robotic bronchoscope was inserted. Registration was completed. I next guided the robotic bronchoscope using the navigation system into the right lower lobe superior segment segment. Once in proper position, the bronchoscope was frozen. The radial EBUS probe was placed through the bronchoscope and confirmed abnormal u/s images vs normal lung. A needle was placed through the working channel and under fluoroscopic guidance, we sampled the area thought to have the mass twice. We then used a cloud biopsy pattern with ultrasound confirmation for 4 additional passes with the needle. U/S evaluation was then used to reconfirm location. Forceps were next introduced through working channel and extended the appropriate distance and 3 transbronchial biopsies were performed using fluoroscopic guidance. The u/s probe was then reinserted to confirm location. When confirmed this process was repeated for a total of 6 transbronchial biopsies. After reassessment with EBUS, a brush was placed through the extendable working channel for 1 pass with fluoroscopic guidance. U/S evaluation was then used to confirm location. 40ml of saline was then instilled into the area of the lesion. The robotic bronchoscope was removed and the airway inspected with a flexible bronchoscope and 10 ml of effluent from the BAL was collected. Fluoroscopic check for pneumothorax was negative upon completion of the procedure. There was 0 ml blood loss with the procedure. FINDINGS: 1.The airways appeared normal 2 Successful navigation, ultrasonographic identification, and biopsies of left lower lobe and right lower lobe pulmonary opacities as discussed above RECOMMENDATIONS: Await pathology and cytology results The referring physician will be alerted to the results when available. The patient was advised to follow up with the referring physician with the biopsy results Patient will be called with results.
== END 2022-12-30 17:44 | disposition home or self-care (01) ==
LOC: ORWHC2ENDO 11:31
PROVIDERS: ATTEND Internal Medicine Critical Care Medicine
DX: R91.1 Solitary pulmonary nodule (principal); I10 Essential (primary) hypertension; E78.5 Hyperlipidemia, unspecified; Z88.8 Allergy status to other drugs, medicaments and biological substances; I48.91 Unspecified atrial fibrillation; Z87.891 Personal history of nicotine dependence; Z79.899 Other long term (current) drug therapy; Z79.01 Long term (current) use of anticoagulants; Z98.890 Other specified postprocedural states
CPT/HCPCS: 31628; 31629; 31624; 31623; 31627; 88108; 88305; 88173; 88342; 88341; 71045; 71250; J2250; J0330; J1100; J2710; J2405; J3010; J2704; J2001; 31633

== ENCOUNTER → 2023-01-19 | Outpatient (CLI) | payer MEDICARE ==
--- NOTE | 2023-01-20 09:38 | CT ---
EXAMINATION TYPE: CT ChestAbdPelvis w con CT DLP: 1485.0 mGycm, Automated exposure control for dose reduction was used. DATE OF EXAM: 01/19/2023 3:51 PM COMPARISON: CT chest 12/30/2022, 11/26/2022, PET/CT 08/27/2022, CT chest abdomen pelvis 09/09/2021. CLINICAL INDICATION:Male, 77 years old with history of C18.7 MALIGNANT NEOPLASM OF SIGMOID COLON; PHH , malignant neoplasm sigmoid colon Technique: Multiple axial images of the chest, abdomen, and pelvis were obtained following the intrav enous administration of 16 mL Isovue-300. Oral contrast was administered. Two-dimensional coronal and sagittal reconstructions were obtained. Findings: CHEST: LUNGS/ PLEURA: No pleural effusion, pneumothorax, focal consolidation. There is a mixed groundglass/s olid lobulated nodule within the superior segment of the left lower lobe measuring up to 2.6 x 2.4 cm that is marginally decreased in size (series 4, image 17). Previously measured 3.2 x 2.9 cm. Additio nal stable right lower lobe solid 1.5 cm pulmonary nodule (series 4, image 32). Right upper lobe 9 mm somewhat spiculated nodule is marginally increase in size (series 4, image 22). Previously measured up to 6 mm. No new pulmonary nodules. Mild centrilobular emphysematous changes. AIRWAY: Patent and unremarkable.. HEART: Size within normal limits. No pericardial effusion. Moderate coronary artery calcifications. MEDIASTINUM: No evidence of adenopathy. VASCULATURE: No aortic aneurysm. MUSCULOSKELETAL: No acute osseous abnormalities. Remote right lateral seventh rib fracture. No aggres sive osseous lesion. SOFT TISSUES/LYMPH NODES: Left chest wall cardiac pacemaking device. Mild bilateral gynecomastia. LOWER NECK: No significant findings. ABDOMEN: ABDOMEN LIVER: Unremarkable GALLBLADDER AND BILE DUCTS: Unremarkable. PANCREAS: Unremarkable. SPLEEN: Unremarkable. ADRENAL GLANDS: Unremarkable. KIDNEYS AND URETERS: No evidence of hydronephrosis or renal calculus. The kidneys enhance symmetrical ly. Nonspecific bilateral perinephric fat stranding. Stable right renal 2.5 cm cyst. PELVIS BLADDER: Incompletely distended but grossly unremarkable. REPRODUCTIVE: Unremarkable. ABDOMEN & PELVIS STOMACH AND BOWEL: Stomach and duodenum are unremarkable. Enteric contrast reaches the ascending colo n. Postsurgical changes of the sigmoid colon with anastomosis demonstrated. No soft tissue at the karan stomosis site to suggest local recurrence. No evidence of bowel obstruction. PERITONEUM: No evidence of pneumoperitoneum or free fluid. VASCULATURE: Mild atherosclerotic calcifications are present throughout the abdominal aorta and its b ranches. No abdominal aortic aneurysm. MUSCULOSKELETAL: No acute osseous abnormalities. Mild disc degeneration changes are present throughout the thoracolumbar spine. No aggressive osseous lesion. LYMPH NODES: No gross evidence for lymphadenopathy. SOFT TISSUE/ABDOMINAL WALL: Unremarkable IMPRESSION: 1. Postsurgical changes from sigmoid colon tumor resection. No evidence for local recurrence. No pat hologic adenopathy within the chest, abdomen and pelvis. 2. Stable to marginal decrease in size of mixed groundglass and solid left lower lobe superior segme nt pulmonary nodule with stable to marginally increase in size of right upper lobe pulmonary nodule a nd stable right lower lobe pulmonary nodule. No new pulmonary nodules identified. Again these may rep resent metastasis versus primary lung cancer. Correlation with recent bronchoscopy results is recomme nded.
== END | disposition home or self-care (01) ==
LOC: RADCTMAIN 13:42
PROVIDERS: ATTEND Internal Medicine Hematology & Oncology
DX: C18.7 Malignant neoplasm of sigmoid colon (principal); R91.8 Other nonspecific abnormal finding of lung field
CPT/HCPCS: 82565; 84520; 71260; 74177; 36415; Q9967

== ENCOUNTER → 2023-05-06 | Outpatient (CLI) | payer MEDICARE ==
[2023-05-06 11:40] LABS: African American GFR (CKD) 82 (>60 ml/min/1.73 sqM); Blood Urea Nitrogen 24 mg/dL (9-20); Non-African American GFR(CKD) 71 (>60 ml/min/1.73 sqM)
--- NOTE | 2023-05-08 11:33 | CT ---
EXAMINATION TYPE: CT ChestAbdPelvis w con DATE OF EXAM: 05/06/2023 COMPARISON: 08/27/2022, 12/30/2022, 01/19/2023, 09/09/2021 HISTORY: 77-year-old male history of colon cancer and lung nodule TECHNIQUE: Contiguous axial scanning of the chest, abdomen, and pelvis performed with IV Contrast, pa tient injected with 100 mL of Isovue 300. Delayed images through the kidneys were obtained. Coronal/s agittal reconstructions performed. CT DLP: 1703.8 mGycm Automated exposure control for dose reduction was used. FINDINGS: Chest: Left anterior chest wall pacemaker generator with right atrial and right ventricular leads. Heart normal size without pericardial effusion. LAD coronary artery calcifications are present. Aorta normal caliber with conventional arch vessel branching anatomy. No new thoracic lymphadenopathy is seen. Mild bilateral gynecomastia. Bilobed mixed groundglass solid nodule superior segment left lower lobe is fairly similar. The superi or component measures 2.7 x 2.4 cm (versus 2.6 x 2.4 cm, previously) and the inferior component which is primarily solid measures 1.8 cm versus 1.9 cm, previously. This suggests that there has been no s ignificant interval change. The posterior right lower lobe pulmonary nodule measures 1.3 cm versus 1.5 cm, previously. Right upper lobe pulmonary nodule 7 mm versus 9 mm, previously. Ongoing surveillance follow-up recommended. Underlying mild emphysematous change. No pleural effusion . ABDOMEN: No focal liver lesion or biliary ductal dilatation. Portal venous system is patent. Gallbladder, adrenal glands, left kidney, spleen, and pancreas within normal limits. A cyst in the po sterior right kidney shows slight interval enlargement now measuring 3.2 cm versus 2.5 cm, previously . An indeterminate small cortical lesion partially exophytic posterior right kidney measures 1.1 cm rolo nikos 9 mm, previously and is indeterminate given small size. Attention on follow-up. No dilated small bowel, free fluid, or free air. No mesenteric or retroperitoneal lymphadenopathy. Oral contrast progressed to the hepatic flexure of the colon. Staple line related to prior resection and re-anastomosis at the distal sigmoid colon. The appearance is unchanged. Pelvis: Mild circumferential bladder wall thickening. Prostate gland mildly enlarged at 4.6 cm wide. Multiple pelvic phleboliths. No abnormal fluid collection in the pelvis or pelvic lymphadenopathy. Bones: No osseous destructive process. IMPRESSION: 1. BILOBED MIXED GROUNDGLASS AND SOLID NODULE MEASURING UP TO 2.7 CM SUPERIOR SEGMENT LEFT LOWER LOBE REMAINS FAIRLY UNCHANGED FROM THE 2 RECENT PRIOR COMPARISONS. ONGOING SURVEILLANCE IS ADVISED LOW -GRADE NEOPLASM NOT EXCLUDED. 2. THE POSTERIOR RIGHT LOWER LOBE PULMONARY NODULE IS SLIGHTLY SMALLER AT 1.3 CM VERSUS 1.5 CM, PREVI OUSLY. SIMILARLY, THE RIGHT UPPER LOBE PULMONARY NODULE IS MINIMALLY SMALLER AT 7 MM VERSUS 9 MM, PRE VIOUSLY. 3. A SMALL EXOPHYTIC CORTICAL LESION POSTERIOR RIGHT KIDNEY MEASURES 11 MM VERSUS 9 MM, PREVIOUSLY. I NDETERMINATE GIVEN SMALL SIZE. NOT SEEN ON OLDER PRIORS SUCH 09/09/2021. ATTENTION ON FOLLOW-UP TO EXCLUDE A NEW DEVELOPING LESION HERE. 4. STATUS POST DISTAL SIGMOID RESECTION AND REANASTOMOSIS. THERE IS OTHERWISE, NO OTHER EVIDENCE FOR LOCOREGIONAL RECURRENCE OR METASTATIC DISEASE.
== END | disposition home or self-care (01) ==
LOC: RADCTMAIN 09:42
PROVIDERS: ATTEND Internal Medicine Hematology & Oncology
DX: C18.7 Malignant neoplasm of sigmoid colon (principal); R91.1 Solitary pulmonary nodule; N28.89 Other specified disorders of kidney and ureter; I10 Essential (primary) hypertension; Z85.038 Personal history of other malignant neoplasm of large intestine; Z90.49 Acquired absence of other specified parts of digestive tract; Z71.3 Dietary counseling and surveillance; Z98.0 Intestinal bypass and anastomosis status
CPT/HCPCS: 82565; 84520; 71260; 74177; 36415; Q9967

== ENCOUNTER → 2023-07-04 | Outpatient (CLI) | payer MEDICARE ==
[2023-07-04 16:44] LABS: Chol/HDL Ratio 2.87 Ratio; LDL Cholesterol,Calculated 71.4 mg/dL (0.0-131.0)
[2023-07-04 16:45] LABS: ALT 16 U/L (10-49); AST 19 U/L (14-35); Albumin 4.7 d/dL (3.8-4.9); Albumin/Globulin Ratio 1.74 Ratio (1.60-3.17); Alkaline Phosphatase 122 U/L (41-126); BUN/Creat Ratio 17.89 Ratio (12.00-20.00); Blood Urea Nitrogen 16.1 mg/dL (9.0-27.0); Calcium 9.8 mg/dL (8.7-10.3); Carbon Dioxide 29.3 mmol/L (21.6-31.8); Chloride 98 mmol/L (96-109); Globulin 2.7 d/dL (1.6-3.3); Glucose 97 mg/dL (70-110); Potassium 4.4 mmol/L (3.5-5.5); Sodium 141 mmol/L (135-145); T4, Free (Free Thyroxine) 1.32 ng/dL (0.80-1.80); Total Bilirubin 0.3 mg/dL (0.3-1.2); Total Protein 7.4 d/dL (6.2-8.2)
[2023-07-04 16:50] LABS: Basophils # (A) 0.04 X 10*3/uL (0.00-0.10); Basophils % (A) 0.6 %; Eosinophils # (A) 0.13 X 10*3/uL (0.04-0.35); Eosinophils % (A) 1.9 %; HGB 16.6 d/dL (13.0-17.0); Lymphocytes # (A) 1.49 X 10*3/uL (0.90-5.00); Lymphocytes % (A) 21.7 %; MCH 31.9 pg (27.0-32.0); MCHC 34.6 d/dL (32.0-37.0); MCV 92.3 FL (80.0-97.0); Mean Platelet Volume 9.9 FL (9.5-12.2); Monocytes # (A) 0.62 X 10*3/uL (0.20-1.00); NRBC Per 100 WBC 0 X 10*3/uL (0.00-0.01); Neutrophils # (A) 4.59 X 10*3/uL (1.80-7.70); Neutrophils % (A) 66.7 %; Platelet Count 262 X 10*3/uL (140-440); RDW 13.7 % (11.5-14.5); WBC 6.88 X 10*3/uL (4.50-10.00)
== END | disposition home or self-care (01) ==
LOC: LABWHC1 08:47
PROVIDERS: ATTEND Nurse Practitioner
DX: Z12.5 Encounter for screening for malignant neoplasm of prostate (principal); E78.5 Hyperlipidemia, unspecified; R53.83 Other fatigue
CPT/HCPCS: 84439; 80061; 80053; 84443; 85025; 84402; 84403; 82306; 36415; G0103

== ENCOUNTER → 2023-08-31 | Outpatient (CLI) | payer MEDICARE ==
[2023-08-31 12:45] LABS: African American GFR (CKD) >90 (>60 ml/min/1.73 sqM); Blood Urea Nitrogen 16 mg/dL (9-20); Non-African American GFR(CKD) 83 (>60 ml/min/1.73 sqM)
--- NOTE | 2023-09-05 21:20 | CT ---
EXAMINATION TYPE: CT ChestAbdPelvis w con DATE OF EXAM: 08/31/2023 COMPARISON: 05/06/2023 and 01/19/2023 HISTORY: 78-year-old male C18.7 COLON CA, Follow up for colon cancer. TECHNIQUE: Contiguous axial scanning of the chest, abdomen, and pelvis performed with IV Contrast, pa tient injected with 100ml mL of Isovue 300. Delayed images through the kidneys were obtained. Coronal /sagittal reconstructions performed. CT DLP: 1911.5 mGycm Automated exposure control for dose reduction was used. FINDINGS: Chest: Left anterior chest wall pacemaker generator with right atrial and right ventricular leads. Heart nor mal size without pericardial effusion. LAD coronary artery calcifications are present. Aorta normal caliber with mild sclerotic arch calcifications and conventional arch also branching karan lisa. No thoracic lymphadenopathy by CT size criteria. Lungs show a focal masslike area of consolidation measuring up to 4.8 x 4.0 cm in the posterior basil ar right lower lobe versus 1.3 cm on 05/06/2023. Focal poorly defined opacity superior segment left lower lobe measures 2.5 cm and is showing increasi ng soft tissue component but overall similar size. This is bilobed with the more inferior portion braxton suring 1.8 cm now versus 1.5 cm, previously. Bandlike scarring or atelectasis right midlung. No pleural effusion. ABDOMEN: No focal liver lesion. Portal venous system is patent. No biliary ductal dilatation. Gallbladder, adrenal glands, left kidney, spleen, and pancreas within normal limits. A couple benign renal cortical cysts on the right measuring 2.9 and 1.6 cm. Symmetric uptake and excr etion of contrast from the kidneys. Mild atherosclerotic calcifications infrarenal abdominal aorta. No dilated small bowel, free fluid, or free air. No mesenteric or retroperitoneal adenopathy. Scattered mild stool. There is a stable line at the mid to distal sigmoid colon from prior resection and reanastomosis. Pelvis: Circumferential bladder wall thickening may be partly chronic. Correlate to exclude cystitis. Prostat e gland mildly enlarged at 4.5 cm wide. No abnormal fluid collection in the pelvis or pelvic lymphade nopathy. A number of pelvic phleboliths are redemonstrated. Bones: Mild to moderate degenerative change in both hips. Degenerative bony ankylosis left SI joint. Old hea led right-sided rib fracture deformities. Moderate degenerative disc disease L5-S1. No osseous destructive process seen. IMPRESSION: 1. PREVIOUS MID SIGMOID RESECTION AND REANASTOMOSIS. 2. MARKED INTERVAL ENLARGEMENT OF THE FOCAL OPACITY POSTERIOR RIGHT LOWER LOBE NOW MEASURING UP TO 4. 8 CM VERSUS 1.3 CM, PREVIOUSLY. UNABLE TO EXCLUDE LOCAL PROGRESSION OF NEOPLASM HERE. 3. BILOBED NODULE SUPERIOR SEGMENT LEFT LOWER LOBE WITH MIXED GROUNDGLASS AND SOLID COMPONENTS REDEMO NSTRATED. WHILE OVERALL SIZE IS SIMILAR, THERE IS CONTINUED INCREASING SOFT TISSUE COMPONENT. LOW-GRA DE NEOPLASM REMAINS TO BE EXCLUDED. 4. BANDLIKE AREA OF SCARRING OR ATELECTASIS HAS DEVELOPED IN THE RIGHT MIDLUNG.
== END | disposition home or self-care (01) ==
LOC: RADCTMAIN 11:40
PROVIDERS: ATTEND Internal Medicine Hematology & Oncology
DX: C18.7 Malignant neoplasm of sigmoid colon (principal); R91.8 Other nonspecific abnormal finding of lung field
CPT/HCPCS: 82565; 84520; 71260; 74177; 36415; Q9967

== ENCOUNTER → 2023-09-23 | Outpatient (CLI) | payer MEDICARE ==
--- NOTE | 2023-09-26 15:08 | PE ---
EXAMINATION TYPE: PET CT fusion skull to thigh DATE OF EXAM: 09/23/2023 COMPARISON: 08/31/2023 Prior PET/CT: None at this location HISTORY: Colorectal cancer TECHNIQUE: Following the intravenous administration of 10.31 mCi of F-18 FDG, whole body images are performed from the skull base to the midthigh. Images are reviewed on the computer in the coronal, a xial, and sagittal planes. Reconstructed rotating images are created on independent workstation and reviewed on the computer. A localization and attenuation correction CT is performed in conjunction with the PET scan. DLP: 938.41 mGycm SCAN: Subsequent Blood glucose: 84 mg/dL Average Mediastinum SUV: 2.19 Average Liver SUV: 2.99 FINDINGS: NECK: Mild uptake is the anterior left prevertebral space, image 44, SUV 4.55. THORAX: There is mild uptake within the posterior left upper lung field density, SUV 2.13. Correlate for atelectasis or pneumonia. There is mild increased uptake within the right midlung infiltrate. Cor relate for atelectasis or pneumonia. Neoplasm should be considered. Example image 98. There is mild uptake within the posterior right lung opacity, example image 112, SUV 3.12. ABDOMEN: No abnormal uptake PELVIS: No abnormal uptake OSSEOUS STRUCTURES: No abnormal uptake LOCALIZATION CT: Prostate is somewhat prominent. COMPARISON: Findings within the lung wang appear to be new. IMPRESSION: 1. Mild uptake within ill-defined densities within the lungs discussed above. These have intermediate to mildly elevated SUV values. Differential diagnosis would include both benign and malignant proces ses including atelectasis, pneumonia, and neoplasm. Recommend short-term follow-up. Bronchoscopy can be performed as clinically indicated.
== END | disposition home or self-care (01) ==
LOC: RADPETMAIN 09:29
PROVIDERS: ATTEND Radiology Radiation Oncology
DX: C78.01 Secondary malignant neoplasm of right lung (principal); C18.7 Malignant neoplasm of sigmoid colon; J98.4 Other disorders of lung; Z87.891 Personal history of nicotine dependence
CPT/HCPCS: 78815; A9552

== ENCOUNTER 2023-10-20 11:36 | Day surgery (SDC) | payer MEDICARE ==
[~2023-10-20 11:36] MED LIST changes: +LIDOCAINE 1% (10MG/ML) FOR IV START INTRADERMA PRN
[2023-10-20] MEDS: LACTATED RINGERS 1,000 ML IV SCH (12:52)
[2023-10-20] MEDS ORDERED: LIDOCAINE 2% (PF) 20 MG/ML 5 ML VIAL ONE (13:30)
[2023-10-20] MEDS ORDERED: GLYCOPYRROLATE 0.2 MG/ML 2 ML VIAL ONE (13:30)
[2023-10-20] MEDS ORDERED: NEOSTIGMINE 1 MG/ML 10 ML VIAL ONE (13:30)
[2023-10-20] MEDS ORDERED: fentaNYL (PF) 50 MCG/ML 2 ML AMP ONE (13:30)
[2023-10-20] MEDS ORDERED: ROCURONIUM 10 MG/ML (5 ML VIAL) IV ONE (13:30)
[2023-10-20] MEDS ORDERED: PROPOFOL 10 MG/ML 20 ML VIAL IV ONE (13:30)
[2023-10-20] MEDS ORDERED: SUCCINYLCHOLINE CHLORIDE 200 MG/10 ML VIAL IV ONE (13:30)
--- NOTE | 2023-10-20 13:44 | CT ---
EXAMINATION TYPE: CT chest wo con CT DLP: 656 mGycm, Automated exposure control for dose reduction was used. DATE OF EXAM: 10/20/2023 12:28 PM COMPARISON: 08/31/2023, 09/23/2023. CLINICAL INDICATION:Male, 78 years old with history of having ion robot bronch; PHH, ion TECHNIQUE: Multiple axial images were obtained through the chest. Sagittal and coronal reformats were created for review. Contrast used: mL of (None if empty) Oral contrast used: (None if empty) FINDINGS: LUNGS/ PLEURA: Left lower lobe superior segment predominantly groundglass nodule measuring 31 x 29 mm with areas of more dense tissue within possibly representing solid neoplasia. Additional scattered s treaky consolidation in the right lower lung bronchovascular crowding. Right upper lung bronchovascul ar crowding with atelectasis. AIRWAY: Patent and unremarkable. HEART: No heart is enlarged for size. There is cardiac conduction leads remain in the right ventricle and atrium. I discussed the arterial vasculature. MEDIASTINUM: No gross evidence of adenopathy. VASCULATURE: No aortic aneurysm. MUSCULOSKELETAL: Severe disc degeneration changes are present throughout the thoracolumbar spine. SOFT TISSUES/LYMPH NODES: Unremarkable. LOWER NECK: No significant findings. UPPER ABDOMEN: No significant findings. IMPRESSION: 1. 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 2. Right lower lung bronchovascular crowding possibly relating to scarring/atelectasis. Underlying m ass felt to be less likely given findings of no significant increase in activity on PET/CT 09/23/2023.
[2023-10-20 15:08] VITALS: TEMP 98
--- NOTE | 2023-10-20 15:08 | FL ---
EXAMINATION TYPE: FL bronchoscopy DATE OF EXAM: 10/20/2023 CLINICAL HISTORY: BRONCH WITH ION TECHNIQUE: Fluoroscopy. COMPARISON: None. FINDINGS: 4 min 57 sec fl-DAP 8.95 Gycm2 IMPRESSION: As Above.
--- NOTE | 2023-10-20 15:28 | XR ---
EXAMINATION TYPE: XR chest 1V portable DATE OF EXAM: 10/20/2023 HISTORY: Shortness of breath. COMPARISON: 12/30/2022 TECHNIQUE: Single view of the chest is submitted. FINDINGS: Demonstrated are scattered senescent parenchymal change. Right basilar infiltrate versus consolidation. Chronic Elevation right hemidiaphragm. The heart is stable. Hilar and mediastinal structures are within normal limits. Degenerative changes are seen of the dorsal spine. IMPRESSION: 1. Right basilar infiltrate versus consolidation. Chronic Elevation right hemidiaphragm.
--- NOTE | 2023-10-20 15:40 | P.PCN ---
Date of Procedure: 10/20/23 Operative Findings: Procedure(s) Performed: Flexible bronchoscopy Robotic-assisted bronchoscopy and addition to radial ultrasound evaluation of the lung mass- ION robotic system Robotic-assisted transbronchial biopsies, transbronchial brushing of the left lower lobe mass mass Robotic-assisted transbronchial biopsies, transbronchial brushing of the right lower lobe mass mass Anesthesia: [place] Surgeon: Ida Cao Estimated Blood Loss (ml): 0 Pathology: other Condition: stable Disposition: same day Operative Findings: This patient was confirmed to have metastatic colon cancer with pulmonary involvement. The patient had a lesion in the right lower lobe that was diagnosed being a metastatic colorectal carcinoma and the patient received SBRT. The patient had another groundglass lesion in the left lower lobe which was thought to be malignant. Nevertheless, a previous biopsy of the left lower lobe pulmonary nodule was nondiagnostic for malignancy. The patient is coming back with worsening left lower lobe lesion and a biopsy of the left lower lobe pulmonary nodule was indicated admission to the biopsying of the right lower lobe pulmonary nodule. A physical exam was performed. Informed consent was obtained from the patient after explaining all the risks (pneumothorax, life threatening bleeding, infection and adverse effects due to medications), benefits and alternatives to the procedure which the patient appeared to understand and so stated. The patient was connected to the monitoring devices. General anesthesia was induced and the patient was intubated by anesthesia. A final timeout was performed and the procedure confirmed by the attending staff bronchoscopist. The bronchoscope was inserted and the airway examined. The flexible bronchoscope was removed and the robotic bronchoscope was inserted. Registration was completed. I next guided the robotic bronchoscope using the navigation system into the left lower lobe posterior segment segment. Once in proper position, the bronchoscope was frozen. The radial EBUS probe was placed through the bronchoscope and confirmed abnormal u/s images vs normal lung. U/S evaluation was then used to reconfirm location. Forceps were next introduced through working channel and extended the appropriate distance and 2 transbronchial biopsies were performed using fluoroscopic guidance. The u/s probe was then reinserted to confirm location. When confirmed this process was repeated for a total of 6-8 imaging of the. After reassessment with EBUS, a brush was placed through the extendable working channel for 1 pass with fluoroscopic guidance. U/S evaluation was then used to confirm location. The flexible bronchoscope was removed and the robotic bronchoscope was inserted. Registration was completed. I next guided the robotic bronchoscope using the navigation system into the right lower lobe superior segment segment. Once in proper position, the bronchoscope was frozen. The radial EBUS probe was placed through the bronchoscope and confirmed abnormal u/s images vs normal lung. U/S evaluation was then used to reconfirm location. Forceps were next introduced through working channel and extended the appropriate distance and 3 transbronchial biopsies were performed using fluoroscopic guidance. The u/s probe was then reinserted to confirm location. When confirmed this process was repeated for a total of 6-8 transbronchial biopsies. After reassessment with EBUS, a brush was placed through the extendable working channel for 1 pass with fluoroscopic guidance. U/S evaluation was then used to confirm location. Fluoroscopic check for pneumothorax was negative upon completion of the procedure. There was 0 ml blood loss with the procedure. FINDINGS: 1.The airways appeared normal 2 Successful navigation, ultrasonographic identification, and biopsies of left lower lobe and right lower lobe pulmonary masses RECOMMENDATIONS: Await pathology and cytology results The referring physician will be alerted to the results when available. The patient was advised to follow up with the referring physician with the biopsy results Patient will be called with results. Additional CC's: Shanti Link
[2023-10-20 16:07] VITALS: BP 145/74; PULSE 60; RESP 18
== END 2023-10-20 16:22 | disposition home or self-care (01) ==
LOC: ORWHC2ENDO 11:36
PROVIDERS: ATTEND Internal Medicine Critical Care Medicine
DX: C34.32 Malignant neoplasm of lower lobe, left bronchus or lung (principal)
CPT/HCPCS: 31627; 88305; 88342; 88341; 71045; 71250; 31628; 31623; J0330; J2710; J3010; J2704; J2001; S2900

== ENCOUNTER → 2024-02-20 | Outpatient (CLI) | payer MEDICARE ==
--- NOTE | 2024-02-21 09:06 | PE ---
EXAMINATION TYPE: PET CT fusion skull to thigh DATE OF EXAM: 02/20/2024 CLINICAL INDICATION:Male, 78 years old with history of C34.32 Lung ca; TECHNIQUE: Following the intravenous administration of 10.4 mCi of F-18 FDG, whole body images are performed from the skull base to the midthigh. Images are reviewed on the computer in the coronal, a xial, and sagittal planes. Reconstructed rotating images are created on independent workstation and reviewed on the computer. A non-contrast CT is performed in conjunction with the PET scan. Glucose level 90 mg/dL CT DLP: 955 mGycm, Automated exposure control for dose reduction was used. COMPARISON: CT 10/20/2023, PET/CT 09/23/2023, FINDINGS: Mediastinal SUV mean is 2.1. Hepatic parenchyma SUV mean is 3.0. SKULL BASE AND NECK: No suspicious radiotracer activity. CHEST, MEDIASTINUM, AND HILAR REGION: * Left lower lungs superior segment. Nodule measuring 2.5 cm, similar to prior Max SUV 5.4, previous ly 2.5 in this region. * Right lower lobe medial consolidation changes max SUV 3.2 previously 4.1., Similar similar morphol ogy with areas of consolidation have decreased. * No lymphadenopathy identified. ABDOMEN AND PELVIS: No suspicious radiotracer activity. MUSCULOSKELETAL STRUCTURES: No suspicious radiotracer activity. OTHER CT: Bilaterally aphakia. Left chest wall cardiac conduction leads terminating in the right vent ricle and right atrium. Atherosclerosis of the coronary arteries. Right renal cysts. Scattered coloni c diverticula. Post surgical changes to the sigmoid colon. Right fat-containing inguinal hernia. IMPRESSION: 1. 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 Overall size is not significantly changed from 09/23/2023. 2. Right lower lung consolidation changes has rsomewhat decreased in both size but has a similar mor phology. No suspicious elevated FDG activity within this region. 3. No evidence for lymphadenopathy or evidence for additional sites of malignancy.
== END | disposition home or self-care (01) ==
LOC: RADPETMAIN 09:46
PROVIDERS: ATTEND Internal Medicine Hematology & Oncology
DX: C34.32 Malignant neoplasm of lower lobe, left bronchus or lung (principal); R91.1 Solitary pulmonary nodule; J18.1 Lobar pneumonia, unspecified organism
CPT/HCPCS: 78815; A9552

== ENCOUNTER 2024-04-14 12:31 | Observation (INO) | payer MEDICARE ==
--- NOTE | 2024-04-14 12:53 | ED ---
General Adult HPI - General Source: patient, RN notes reviewed Mode of arrival: ambulatory Limitations: no limitations <Tish Singer - Last Filed: 04/14/24 12:51> - General Source: patient, RN notes reviewed Mode of arrival: ambulatory Limitations: no limitations <Sushil Hightower - Last Filed: 04/14/24 19:21> - General Chief complaint: Recheck/Abnormal Lab/Rx Stated complaint: Pacemaker issues Time Seen by Provider: 04/14/24 12:51 - History of Present Illness Initial comments: Quick Note: This is a 78-year-old male who presents to the emergency department for concerns of problems related to his pacemaker. States that last night he started to notice tingling in the area where his pacemaker is, which then resolved, however that he then felt dizzy like he was going to pass out. Afterwards the tingling in his chest returned. His pacemaker is about 9.5 years old. He is scheduled to have it interrogated again in a couple of months. Currently denies any chest pain or shortness of breath. (Tish Singer) Patient is a 78-year-old male present to the emergency department with concerns for odd sensation in his chest. Patient states this was his left lower chest. Patient has had several episodes of tingling. Patient states he also had near syncopal episode. Patient does have history of similar episode years ago associated with arrhythmia and A-fib and asystole followed by pacemaker placement. (Sushil Hightower) - Related Data Home Medications Medication Instructions Recorded Confirmed Apixaban [Eliquis] 5 mg PO BID 09/03/22 04/14/24 Atorvastatin [Lipitor] 40 mg PO HS 09/03/22 04/14/24 Cholecalciferol [Vitamin D3 (125 125 mcg PO HS 09/03/22 04/14/24 Mcg = 5000 Iu)] Famotidine [Pepcid] 20 mg PO BID 09/03/22 04/14/24 Ferrous Sulfate [Iron (65 MG 1 tab PO HS 09/03/22 04/14/24 Elemental)] Loratadine [Claritin] 10 mg PO BID PRN 09/03/22 04/14/24 Magnesium 250 mg PO HS 09/03/22 04/14/24 Omeprazole 20 mg PO BID 09/03/22 04/14/24 Thiamine [Vitamin B-1] 100 mg PO HS 09/03/22 04/14/24 Triamterene/Hydrochlorothiazid 1 tab PO BID 09/03/22 04/14/24 [Maxzide 37.5-25] allopurinoL 300 mg PO DAILY 09/03/22 04/14/24 amLODIPine [Norvasc] 10 mg PO HS 09/03/22 04/14/24 diazePAM [Valium] 5 mg PO BID 09/03/22 04/14/24 Metoprolol Tartrate [Lopressor] 50 mg PO BID 09/10/22 04/14/24 Multivitamins, Thera [Multivitamin 1 tab PO HS 09/10/22 04/14/24 (formulary)] Docusate [Colace] 100 mg PO BID PRN 12/27/22 04/14/24 Econazole 1% Cream [Spectazole] 1 applic TOPICAL DAILY 12/27/22 04/14/24 polyethylene glycoL 3350 [Miralax] 17 gm PO DAILY PRN 10/18/23 04/14/24 Acetaminophen-Codeine 300-30mg 1 tab PO BID@1930,2330 04/14/24 04/14/24 [Tylenol w/codeine #3] Betamethasone Dipropionate 1 applic TOPICAL BID PRN 04/14/24 04/14/24 [Betamethasone Dipropionate 0.05% Cream] Folic Acid 0.8 mg PO HS 04/14/24 04/14/24 Lipo Flavonoid Plus 2 tab PO TID@0500,1200,2000 04/14/24 04/14/24 Nystatin [Nystop] 1 applic TOPICAL BID 04/14/24 04/14/24 Allergies Allergy/AdvReac Type Severity Reaction Status Date / Time procaine [From Novocain] Allergy PASSED OUT Verified 04/14/24 17:45 Review of Systems ROS Other: All systems not noted in ROS Statement are negative. <Tish Singer - Last Filed: 04/14/24 12:51> ROS Other: All systems not noted in ROS Statement are negative. Constitutional: Denies: fever Eyes: Denies: eye pain ENT: Denies: ear pain Respiratory: Denies: cough Cardiovascular: Reports: as per HPI, chest pain, palpitations Musculoskeletal: Denies: back pain <Sushil Hightower - Last Filed: 04/14/24 19:21> ROS Statement: Those systems with pertinent positive or pertinent negative responses have been documented in the HPI. Past Medical History Past Medical History: Atrial Fibrillation, Cancer, GERD/Reflux, Hyperlipidemia, Hypertension, Neurologic Disorder, Osteoarthritis (OA) Additional Past Medical History / Comment(s): GOUT. Toe fungus. 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 Being worked up at this time by Dr Leblanc History of Any Multi-Drug Resistant Organisms: None Reported Past Surgical History: Appendectomy, Bowel Resection, Hernia Repair, Pacemaker Additional Past Surgical History / Comment(s): COLON RESECTION CANCER. Inguinal right side. Cataract both eyes. lung bx postive for cancer, did radiation tx. multiple ct and pet scans done to monitor lung growths. Past Anesthesia/Blood Transfusion Reactions: No Reported Reaction Additional Past Anesthesia/Blood Transfusion Reaction / Comment(s): no hx blood transfusions Type of Cardiac Device: Permanent Pacemaker Device Placement Date:: [employer] DRTPro mRI placed 10/11/14 Smoking Status: Former smoker - Past Family History Sister(s) Family Medical History: Cancer Additional Family Medical History / Comment(s): skin cancer Brother(s) Family Medical History: Cancer Additional Family Medical History / Comment(s): lymph nodes <Tish Singer - Last Filed: 04/14/24 12:51> General Exam <Tish Singer - Last Filed: 04/14/24 12:51> Limitations: no limitations General appearance: alert, in no apparent distress Head exam: Present: normocephalic Eye exam: Present: normal appearance ENT exam: Present: normal oropharynx Neck exam: Present: normal inspection Respiratory exam: Present: normal lung sounds bilaterally Cardiovascular Exam: Present: regular rate, normal rhythm, normal heart sounds Expanded Peripheral pulses: 2+: Radial (R), Radial (L), Posterior Tibialis (R), Posterior Tibialis (L) GI/Abdominal exam: Present: soft. Absent: tenderness Extremities exam: Present: normal inspection. Absent: pedal edema, calf tenderness Neurological exam: Present: alert Psychiatric exam: Present: normal affect, normal mood Skin exam: Present: normal color <Sushil Hightower - Last Filed: 04/14/24 19:21> - General Exam Comments Initial Comments: Visual Physical Exam Vital signs reviewed General: Well-appearing, nontoxic, no acute distress. Head: Normocephalic, atraumatic Eyes: PERRLA, EOMI ENT: Airway patent Chest: Nonlabored breathing Skin: No visual rash, normal skin tone Neuro: Alert and oriented 3 Musculoskeletal: No gross abnormalities (Tish Singer) Course Vital Signs 04/14/24 04/14/24 04/14/24 13:27 16:04 18:56 Temperature 97.6 F Pulse Rate 72 71 80 Respiratory 20 18 18 Rate Blood Pressure 158/83 164/93 130/72 O2 Sat by Pulse 96 98 97 Oximetry EKG Findings - EKG Results: EKG: interpreted by ERMD (Rhythm with a rate of 77. GA 241. Left axis. Inferior Q waves. Wide-complex QRS. No acute ST change.) <Sushil Hightower - Last Filed: 04/14/24 19:21> Medical Decision Making <Tish Singer - Last Filed: 04/14/24 12:51> - Lab Data Result diagrams: 04/14/24 13:25 04/14/24 13:25 <Sushil Hightower - Last Filed: 04/14/24 19:21> - Medical Decision Making I performed the QuickNote portion of this chart. Signed Tish Singer PA-C. (Tish Singer) MDM back was pt. sent in by a medical professional or institution ([facility]an, HONEY EXTR[employer]OR, urgent care, hospital, or long-term...) When possible be specific @ -No Did you speak to anyone other than the patient for history (EMS, parent, family, police, friend...)? What history was obtained from this source @ -No Did you review nursing and triage notes (agree or disagree)? Why? @ -I reviewed and agree with nursing and triage notes Were old charts reviewed (outside hosp., previous admission, EMS record, old EKG, old radiological studies, urgent care reports/EKG's, long-term records)? Report findings @ -No old charts were reviewed Differential Diagnosis (chest pain, altered mental status, abdominal pain women, abdominal pain men, vaginal bleeding, weakness, fever, dyspnea, syncope, headache, dizziness, GI bleed, back pain, seizure, CVA, palpatations, mental health, musculoskeletal)? @ -MDM differential chest differential Chest Pain: Stable Angina, Unstable Angina, STEMI, NSTEMI Aortic Dissection, Pneumothorax, Musculoskeletal, Esophageal Spasm GERD, Cholecystitis, Pancreatitis, Zoster, this is not meant to be an all-inclusive list. EKG interpreted by me (3pts min.). @ -As above X-rays interpreted by me (1pt min.). @ -Chest x-ray shows probable atelectasis CT interpreted by me (1pt min.). @ -None done U/S interpreted by me (1pt. min.). @ -None done What testing was considered but not performed or refused? (CT, X-rays, U/S, lab s)? Why? @ -None What meds were considered but not given or refused? Why? @ -None Did you discuss the management of the patient with other professionals (professionals i.e. , PA, HONEY EXTRACTOR, lab, RT, psych nurse, social problems specialist, shelving supervisor, teacher, foreign service officer, case loader operator)? Give summary @ -Case was discussed with Dr. Duggan who will admit covering hospital call Was smoking cessation discussed for >3mins.? @ -No Was critical care preformed (if so, how long)? @ -No Were there social determinants of health that impacted care today? How? (Homelessness, low income, unemployed, alcoholism, drug addiction, transportation, low edu. Level, literacy, decrease access to med. care, fci, rehab)? @ -No Was there de-escalation of care discussed even if they declined (Discuss DNR or withdrawal of care, Hospice)? DNR status @ -No What co-morbidities impacted this encounter? (DM, HTN, Smoking, COPD, CAD, Cancer, CVA, ARF, Chemo, Hep., AIDS, mental health diagnosis, sleep apnea, morbid obesity)? @ -History of dysrhythmia and history of syncope and history of pacemaker placement Was patient admitted / discharged? Hospital course, mention meds given and route, prescriptions, significant lab abnormalities, going to OR and other pertinent info. @ -Patient presents with some chest discomfort and near syncopal. Patient does have cardiac history. Patient will be admitted with cardiology consult. Admission orders written Undiagnosed new problem with uncertain prognosis? @ -No Drug Therapy requiring intensive monitoring for toxicity (Heparin, Nitro, Insulin, Cardizem)? @ -No Were any procedures done? @ -No Diagnosis/symptom? @ -Chest pain, near syncope Acute, or Chronic, or Acute on Chronic? @ -, Acute Uncomplicated (without systemic symptoms) or Complicated (systemic symptoms)? @ -Default Side effects of treatment? @ -No Exacerbation, Progression, or Severe Exacerbation? @ -No Poses a threat to life or bodily function? How? (Chest pain, [place], [place], pneumonia, PE, COPD, DKA, ARF, appy, cholecystitis, CVA, Diverticulitis, Homicidal, Suicidal, threat to staff... and all critical care pts) @ -Threat to cardiac function (Sushil Hightower) - Lab Data Lab Results 04/14/24 04/14/24 04/14/24 Range/Units 13:25 13:25 13:25 WBC 8.6 (3.8-10.6) k/uL RBC 5.14 (4.30-5.90) m/uL Hgb 15.7 (13.0-17.5) gm/dL Hct 47.7 (39.0-53.0) % MCV 92.8 (80.0-100.0) fL MCH 30.6 (25.0-35.0) pg MCHC 33.0 (31.0-37.0) g/dL RDW 13.6 (11.5-15.5) % Plt Count 243 (150-450) k/uL MPV 7.1 Neutrophils % 80 % Lymphocytes % 13 % Monocytes % 5 % Eosinophils % 1 % Basophils % 0 % Neutrophils # 6.9 (1.3-7.7) k/uL Lymphocytes # 1.1 (1.0-4.8) k/uL Monocytes # 0.4 (0-1.0) k/uL Eosinophils # 0.1 (0-0.7) k/uL Basophils # 0.0 (0-0.2) k/uL PT 10.4 (10.0-12.5) sec INR 0.9 (<1.2) APTT 25.8 (22.0-30.0) sec Sodium 137 (137-145) mmol/L Potassium 3.9 (3.5-5.1) mmol/L Chloride 98 (98-107) mmol/L Carbon Dioxide 25 (22-30) mmol/L Anion Gap 14 mmol/L BUN 26 H (9-20) mg/dL Creatinine 0.84 (0.66-1.25) mg/dL Est GFR (CKD-EPI)AfAm >90 (>60 ml/min/1.73 sqM) Est GFR (CKD-EPI)NonAf 85 (>60 ml/min/1.73 sqM) Glucose 96 (74-99) mg/dL Calcium 9.4 (8.4-10.2) mg/dL Magnesium 2.0 (1.6-2.3) mg/dL Total Bilirubin 0.7 (0.2-1.3) mg/dL AST 27 (17-59) U/L ALT 18 (4-49) U/L Alkaline Phosphatase 109 (38-126) U/L Troponin I (0.000-0.034) ng/mL Total Protein 7.3 (6.3-8.2) g/dL Albumin 4.6 (3.5-5.0) g/dL 04/14/24 Range/Units 13:25 WBC (3.8-10.6) k/uL RBC (4.30-5.90) m/uL Hgb (13.0-17.5) gm/dL Hct (39.0-53.0) % MCV (80.0-100.0) fL MCH (25.0-35.0) pg MCHC (31.0-37.0) g/dL RDW (11.5-15.5) % Plt Count (150-450) k/uL MPV Neutrophils % % Lymphocytes % % Monocytes % % Eosinophils % % Basophils % % Neutrophils # (1.3-7.7) k/uL Lymphocytes # (1.0-4.8) k/uL Monocytes # (0-1.0) k/uL Eosinophils # (0-0.7) k/uL Basophils # (0-0.2) k/uL PT (10.0-12.5) sec INR (<1.2) APTT (22.0-30.0) sec Sodium (137-145) mmol/L Potassium (3.5-5.1) mmol/L Chloride (98-107) mmol/L Carbon Dioxide (22-30) mmol/L Anion Gap mmol/L BUN (9-20) mg/dL Creatinine (0.66-1.25) mg/dL Est GFR (CKD-EPI)AfAm (>60 ml/min/1.73 sqM) Est GFR (CKD-EPI)NonAf (>60 ml/min/1.73 sqM) Glucose (74-99) mg/dL Calcium (8.4-10.2) mg/dL Magnesium (1.6-2.3) mg/dL Total Bilirubin (0.2-1.3) mg/dL AST (17-59) U/L ALT (4-49) U/L Alkaline Phosphatase (38-126) U/L Troponin I <0.012 (0.000-0.034) ng/mL Total Protein (6.3-8.2) g/dL Albumin (3.5-5.0) g/dL Disposition <Tish Singer - Last Filed: 04/14/24 12:51> Is patient prescribed a controlled substance at d/c from ED?: No Time of Disposition: 19:21 <Sushil Hightower - Last Filed: 04/14/24 19:21> Clinical Impression: Chest pain Disposition: ADMITTED IP TO THIS HOSP Referrals: Justin Shea DO [Primary Care Provider] - 1-2 days
[2024-04-14 13:53] LABS: Basophils % (A) 0 %; Eosinophils # (A) 0.1 k/uL (0-0.7); Eosinophils % (A) 1 %; HCT 47.7 % (39.0-53.0); HGB 15.7 gm/dL (13.0-17.5); Lymphocytes # (A) 1.1 k/uL (1.0-4.8); Lymphocytes % (A) 13 %; MCH 30.6 pg (25.0-35.0); MCV 92.8 fL (80.0-100.0); Mean Platelet Volume 7.1; Monocytes # (A) 0.4 k/uL (0-1.0); Monocytes % (A) 5 %; Neutrophils # (A) 6.9 k/uL (1.3-7.7); Neutrophils % (A) 80 %; Platelet Count 243 k/uL (150-450); RBC 5.14 m/uL (4.30-5.90); RDW 13.6 % (11.5-15.5); WBC 8.6 k/uL (3.8-10.6)
[2024-04-14 14:02] LABS: INR 0.9 (<1.2); Partial Thromboplastin Time 25.8 sec (22.0-30.0); Prothrombin Time 10.4 sec (10.0-12.5)
[2024-04-14 14:03] LABS: ALT 18 U/L (4-49); AST 27 U/L (17-59); African American GFR (CKD) >90 (>60 ml/min/1.73 sqM); Albumin 4.6 g/dL (3.5-5.0); Alkaline Phosphatase 109 U/L (38-126); Anion Gap 14 mmol/L; Blood Urea Nitrogen 26 mg/dL (9-20); Calcium 9.4 mg/dL (8.4-10.2); Carbon Dioxide 25 mmol/L (22-30); Chloride 98 mmol/L (98-107); Glucose 96 mg/dL (74-99); Non-African American GFR(CKD) 85 (>60 ml/min/1.73 sqM); Potassium 3.9 mmol/L (3.5-5.1); Sodium 137 mmol/L (137-145); Total Bilirubin 0.7 mg/dL (0.2-1.3); Total Protein 7.3 g/dL (6.3-8.2)
--- NOTE | 2024-04-14 14:27 | XR ---
EXAMINATION TYPE: XR chest 2V DATE OF EXAM: 04/14/2024 COMPARISON: 10/20/2023 HISTORY: 78-year-old male with chest pain TECHNIQUE: PA and lateral views FINDINGS: Left anterior chest wall pacemaker generator with right atrial and right ventricular leads. Bandlike atelectasis at the right mid lung. Some patchy opacity at the left upper lobe projecting just above t he pacemaker generator. Eventration anterior right hemidiaphragm. No pleural effusion. IMPRESSION: There is some patchy atelectasis versus developing infiltrate at the left upper lobe. Correlate with symptoms. Strandy atelectasis right midlung.
[2024-04-14] MEDS ORDERED: NITROGLYCERIN SL TABS 0.4 MG TAB SUBLINGUAL PRN (19:27)
[2024-04-14] MEDS ORDERED: polyethylene glycoL 3350 17 GM POWD.PACK PO PRN (19:29)
[2024-04-14] MEDS ORDERED: LORATADINE 10 MG TAB PO PRN (19:29)
[2024-04-14] MEDS ORDERED: DOCUSATE 100 MG CAP PO PRN (19:29)
[2024-04-14] MEDS ORDERED: LIPO FLAVONOID PLUS PO SCH (20:00)
[2024-04-14] MEDS: METOPROLOL TARTRATE 50 MG TAB PO SCH (21:02)
[2024-04-14] MEDS: ASPIRIN 81 MG PO STA (21:02)
[2024-04-14] MEDS: THIAMINE 100 MG TAB PO SCH (21:02)
[2024-04-14] MEDS: PANTOPRAZOLE 40 MG TABLET PO SCH (21:02)
[2024-04-14] MEDS: CHOLECALCIFEROL 125 MCG (5000 IU) TABLET PO SCH (21:02)
[2024-04-14] MEDS: FOLIC ACID 1 MG TAB PO SCH (21:02)
[2024-04-14] MEDS: APIXABAN 5 MG TAB PO SCH (21:02)
[2024-04-14] MEDS: Acetaminophen-Codeine 300-30mg TAB PO SCH (21:03)
[2024-04-14] MEDS: MULTIVITAMINS, THERA 1 EACH TAB PO SCH (21:03)
[2024-04-14] MEDS: MAGNESIUM OXIDE 400 MG TAB PO SCH (21:03)
[2024-04-14] MEDS: amLODIPine 10 MG TAB PO SCH (21:03)
[2024-04-14] MEDS: FAMOTIDINE 20 MG TAB PO SCH (21:03)
[2024-04-14] MEDS: ATORVASTATIN 40 MG TAB PO SCH (21:03)
[2024-04-14] MEDS: FERROUS SULFATE 325 MG TAB PO SCH (21:03)
[2024-04-14] MEDS: diazePAM 5 MG TAB PO SCH (21:03)
[2024-04-14] MEDS: TRIAMTERENE-HCTZ 37.5-25MG 1 EACH CAP PO SCH (21:48)
[2024-04-15] MEDS: NITROGLYCERIN OINT 1 INCH/GM PACKET TOPICAL SCH (01:53)
[2024-04-15] MEDS: allopurinoL 300 MG TAB PO SCH (09:28)
[2024-04-15] MEDS: ASPIRIN 325 MG TAB PO SCH (09:28)
[2024-04-15 09:40] LABS: Chol/HDL Ratio 3.56 Ratio; LDL Cholesterol,Calculated 84.5 mg/dL (0.0-131.0)
--- NOTE | 2024-04-15 11:09 | P.CRDCN ---
History of Present Illness Consult date: 04/15/24 History of present illness: HISTORY OF PRESENTING ILLNESS Patient is a 78-year-old male with past medical history of atrial fibrillation s/p permanent pacemaker done at [facility] in 2016. It is a Biotronik pacemaker. Patient sees Dr. Banks regular basis. Patient reports that he has seen her in the last 6 months and he has been told that his pac emaker and heart has been doing well. This time he presented to the hospital because he has been feeling tingling sensation in his pacemaker area for last 1 to 2 days. At the time of evaluation he reports that it has resolved. He also reports that he had a episode of brief passing out. It reminded him of what was the reason he got the pacemaker in first place. Other than this he denies any chest pain chest pressure shortness of breath. He denies any overt lightheadedness. REVIEW OF SYSTEMS 14 point review of system is negative except what is mentioned above in HPI. PHYSICAL EXAMINATION Vital signs reviewed. Head: Normocephalic. Eyes: Sclerae nonicteric. Neck: Brisk carotid upstroke, no jugular venous distention. Lungs: Clear to auscultation. Heart: irregular pulse and rhythm, S1-S2, no S3, no murmur or rub. Abdomen: Soft nontender, positive bowel sounds. Extremities: No edema, intact distal pulses. Neuro: Alert, oritented, no focal deficits. Detailed neuro exam was not perform ed. ASSESSMENT Tingling sensation on pacemaker area Brief syncopal episode Atrial fibrillation on anticoagulation no concerns of bleeding Prior history of TIA Essential hypertension PLAN Obtain orthostatic vital signs Patient's blood pressure and heart rate is well-controlled. His ECG shows atr ial paced V sensed rhythm. It is appropriately sensing and pacing as per the twelve-lead ECG. I will obtain a pacemaker interrogation, Biotronik device to see if patient had any over pacing or increase pacing energy that might be stimulating his diaphragm which is complaining as tingling sensation. This will also help us to understand what happened with this cardiac rhythm during the syncopal episode Continue telemetry monitoring. For now his telemetry has not shown any arrhythmias. Continue his current cardiac medication without any changes. No need for echocardiogram at this time. Obtain medical records from Dr. Banks clinic Humza Kendall MD, FACC, RPVI Thank you for allowing [facility] to participate in this patient's care. Feel free to reach out in case of any followup questions. Past Medical History Past Medical History: Atrial Fibrillation, Cancer, GERD/Reflux, Hyperlipidemia, Hypertension, Neurologic Disorder, Osteoarthritis (OA) Additional Past Medical History / Comment(s): GOUT. Toe fungus. 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 Being worked up at this time by Dr Leblanc History of Any Multi-Drug Resistant Organisms: None Reported Past Surgical History: Appendectomy, Bowel Resection, Hernia Repair, Pacemaker Additional Past Surgical History / Comment(s): COLON RESECTION CANCER. Inguinal right side. Cataract both eyes. lung bx postive for cancer, did radiation tx. multiple ct and pet scans done to monitor lung growths. Past Anesthesia/Blood Transfusion Reactions: No Reported Reaction Additional Past Anesthesia/Blood Transfusion Reaction / Comment(s): no hx blood transfusions Type of Cardiac Device: Permanent Pacemaker Device Placement Date:: biotronic DRTPro mRI placed 10/11/14 Past Psychological History: Anxiety Additional Psychological History / Comment(s): pt with flight of ideas while providing history reports feels very anxious Smoking Status: Former smoker Past Alcohol Use History: None Reported Additional Past Alcohol Use History / Comment(s): QUIT SMOKING QUIT IN 1983 HAD SMOKED FOR 20 YEAR, 1PPD Past Drug Use History: None Reported - Past Family History Sister(s) Family Medical History: Cancer Additional Family Medical History / Comment(s): skin cancer Brother(s) Family Medical History: Cancer Additional Family Medical History / Comment(s): lymph nodes Medications and Allergies Home Medications Medication Instructions Recorded Confirmed Type Apixaban [Eliquis] 5 mg PO BID 09/03/22 04/14/24 History Atorvastatin [Lipitor] 40 mg PO HS 09/03/22 04/14/24 History Cholecalciferol [Vitamin D3 (125 125 mcg PO HS 09/03/22 04/14/24 History Mcg = 5000 Iu)] Famotidine [Pepcid] 20 mg PO BID 09/03/22 04/14/24 History Ferrous Sulfate [Iron (65 MG 1 tab PO HS 09/03/22 04/14/24 History Elemental)] Loratadine [Claritin] 10 mg PO BID PRN 09/03/22 04/14/24 History Magnesium 250 mg PO HS 09/03/22 04/14/24 History Omeprazole 20 mg PO BID 09/03/22 04/14/24 History Thiamine [Vitamin B-1] 100 mg PO HS 09/03/22 04/14/24 History Triamterene/Hydrochlorothiazid 1 tab PO BID 09/03/22 04/14/24 History [Maxzide 37.5-25] allopurinoL 300 mg PO DAILY 09/03/22 04/14/24 History amLODIPine [Norvasc] 10 mg PO HS 09/03/22 04/14/24 History diazePAM [Valium] 5 mg PO BID 09/03/22 04/14/24 History Metoprolol Tartrate [Lopressor] 50 mg PO BID 09/10/22 04/14/24 History Multivitamins, Thera [Multivitamin 1 tab PO HS 09/10/22 04/14/24 History (formulary)] Docusate [Colace] 100 mg PO BID PRN 12/27/22 04/14/24 History Econazole 1% Cream [Spectazole] 1 applic TOPICAL DAILY 12/27/22 04/14/24 History polyethylene glycoL 3350 [Miralax] 17 gm PO DAILY PRN 10/18/23 04/14/24 History Acetaminophen-Codeine 300-30mg 1 tab PO BID@1930,2330 04/14/24 04/14/24 History [Tylenol w/codeine #3] Betamethasone Dipropionate 1 applic TOPICAL BID PRN 04/14/24 04/14/24 History [Betamethasone Dipropionate 0.05% Cream] Folic Acid 0.8 mg PO HS 04/14/24 04/14/24 History Lipo Flavonoid Plus 2 tab PO TID@0500,1200,2000 04/14/24 04/14/24 History Nystatin [Nystop] 1 applic TOPICAL BID 04/14/24 04/14/24 History Allergies Allergy/AdvReac Type Severity Reaction Status Date / Time procaine [From Novocain] Allergy PASSED OUT Verified 04/14/24 17:45 Physical Exam Vitals: Vital Signs Temp Pulse Pulse Resp BP BP Pulse Ox 08/04/24 08:00 66 17 04/15/24 07:00 97.5 F L 66 17 132/78 98 04/15/24 03:17 97.7 F 65 16 120/76 97 04/14/24 22:33 98.0 F 63 18 147/73 98 04/14/24 21:09 77 18 135/76 97 04/14/24 18:56 80 18 130/72 97 04/14/24 16:04 71 18 164/93 98 04/14/24 13:27 97.6 F 72 20 158/83 96 Intake and Output 04/14/24 04/15/24 04/15/24 22:59 06:59 14:59 Output Total 200 Balance -200 Output: Urine 200 Other: Voiding Method Toilet Weight 97.522 kg Results 04/14/24 13:25 04/14/24 13:25 Cardiac Enzymes 04/14/24 04/14/24 04/14/24 Range/Units 13:25 13:25 20:05 AST 27 (17-59) U/L Troponin I <0.012 <0.012 (0.000-0.034) ng/mL 04/14/24 Range/Units 23:59 AST (17-59) U/L Troponin I <0.012 (0.000-0.034) ng/mL Coagulation 04/14/24 Range/Units 13:25 PT 10.4 (10.0-12.5) sec APTT 25.8 (22.0-30.0) sec Lipids 04/14/24 Range/Units 13:25 Triglycerides 131.00 (0.00-149.00) mg/dL Cholesterol 154.00 (0.00-200.00) mg/dL HDL Cholesterol 43.30 (40.00-60.00) mg/dL Cholesterol/HDL Ratio 3.56 Ratio CBC 04/14/24 Range/Units 13:25 WBC 8.6 (3.8-10.6) k/uL RBC 5.14 (4.30-5.90) m/uL Hgb 15.7 (13.0-17.5) gm/dL Hct 47.7 (39.0-53.0) % Plt Count 243 (150-450) k/uL Comprehensive Metabolic Panel 04/14/24 Range/Units 13:25 Sodium 137 (137-145) mmol/L Potassium 3.9 (3.5-5.1) mmol/L Chloride 98 (98-107) mmol/L Carbon Dioxide 25 (22-30) mmol/L BUN 26 H (9-20) mg/dL Creatinine 0.84 (0.66-1.25) mg/dL Glucose 96 (74-99) mg/dL Calcium 9.4 (8.4-10.2) mg/dL AST 27 (17-59) U/L ALT 18 (4-49) U/L Alkaline Phosphatase 109 (38-126) U/L Total Protein 7.3 (6.3-8.2) g/dL Albumin 4.6 (3.5-5.0) g/dL Current Medications Generic Name Dose Route Start Last Admin Trade Name Freq PRN Reason Stop Dose Admin Acetaminophen/Codeine Phosphate 1 each 04/14/24 19:30 04/15/24 01:56 Acetaminophen-Codeine 300-30mg Tab PO 1 each BID@1930,2330 SHERYL Administration Allopurinol 300 mg 04/15/24 09:00 04/15/24 09:28 Allopurinol 300 Mg Tab PO 300 mg DAILY SHERYL Administration Amlodipine Besylate 10 mg 04/14/24 21:00 04/14/24 21:03 Amlodipine 10 Mg Tab PO 10 mg HS SHERYL Administration Apixaban 5 mg 04/14/24 21:00 04/15/24 09:28 Apixaban 5 Mg Tab PO 5 mg BID SHERYL Administration Protocol Aspirin 325 mg 04/15/24 09:00 04/15/24 09:28 Aspirin 325 Mg Tab PO 325 mg DAILY SHERYL Administration Atorvastatin Calcium 40 mg 04/14/24 21:00 04/14/24 21:03 Atorvastatin 40 Mg Tab PO 40 mg HS SHERYL Administration Cholecalciferol 125 mcg 04/14/24 21:00 04/14/24 21:02 Cholecalciferol 125 Mcg (5000 Iu) Tablet PO 125 mcg HS SHERYL Administration Clotrimazole 1 applic 04/15/24 09:00 Clotrimazole 1% Cream 30 Gm Tube TOPICAL DAILY SHERYL Diazepam 5 mg 04/14/24 21:00 04/15/24 09:28 Diazepam 5 Mg Tab PO 5 mg BID SHERYL Administration Docusate Sodium 100 mg 04/14/24 19:29 Docusate 100 Mg Cap PO BID PRN Constipation Famotidine 20 mg 04/14/24 21:00 04/15/24 09:28 Famotidine 20 Mg Tab PO 20 mg BID SHERYL Administration Ferrous Sulfate 325 mg 04/14/24 21:00 04/14/24 21:03 Ferrous Sulfate 325 Mg Tab PO 325 mg HS SHERYL Administration Folic Acid 1 mg 04/14/24 21:00 04/14/24 21:02 Folic Acid 1 Mg Tab PO 1 mg HS [facility] Administration Loratadine 10 mg 04/14/24 19:29 Loratadine 10 Mg Tab PO BID PRN Allergy Symptoms Magnesium Oxide 400 mg 04/14/24 21:00 04/14/24 21:03 Magnesium Oxide 400 Mg Tab PO 400 mg HS [facility] Administration Metoprolol Tartrate 50 mg 04/14/24 21:00 04/15/24 09:28 Metoprolol Tartrate 50 Mg Tab PO 50 mg BID SHERYL Administration Multivitamins 1 each 04/14/24 21:00 04/14/24 21:03 Multivitamins, Thera 1 Each Tab PO 1 each HS [facility] Administration Nitroglycerin 0.4 mg 04/14/24 19:27 Nitroglycerin Sl Tabs 0.4 Mg Tab SUBLINGUAL Q5M PRN Chest Pain Nitroglycerin 1 inch 04/15/24 00:00 04/15/24 04:11 Nitroglycerin Oint 1 Inch/Gm Packet TOPICAL Not Given Q6HR [facility] Pantoprazole Sodium 40 mg 04/14/24 21:00 04/15/24 09:28 Pantoprazole 40 Mg Tablet PO 40 mg BID [facility] Administration Polyethylene Glycol 17 gm 04/14/24 19:29 Polyethylene Glycol 3350 17 Gm Powd.Pack PO DAILY PRN Constipation Thiamine HCl 100 mg 04/14/24 21:00 04/14/24 21:02 Thiamine 100 Mg Tab PO 100 mg HS [facility] Administration Triamterene/Hydrochlorothiazide 1 each 04/14/24 21:00 04/15/24 09:28 Triamterene-Hctz 37.5-25mg 1 Each Cap PO 1 each BID SHERYL Administration Intake and Output 04/14/24 04/15/24 04/15/24 22:59 06:59 14:59 Output Total 200 Balance -200 Output: Urine 200 Other: Voiding Method Toilet Weight 97.522 kg 04/14/24 13:25 04/14/24 13:25
[2024-04-15 13:50] VITALS: BP 138/74; PULSE 68; RESP 16; TEMP 98.3
--- NOTE | 2024-04-15 15:29 | P.HPIM ---
History of Present Illness H&P Date: 04/14/24 Chief Complaint: Chest pain 78-year-old male who presents to the emergency department for concerns of problems related to his pacemaker. States that last night he started to notice tingling in the area where his pacemaker is, which then resolved, however that he then felt dizzy like he was going to pass out. Afterwards the tingling in his chest returned. His pacemaker is about 9.5 years old. He is scheduled to have it interrogated again in a couple of months. Currently denies any chest pain or shortness of breath. Blood work completed in ED reveals a WBC of 8.6, hemoglobin of 15.7 and platelet count of 243, sodium 137, potassium 3.9, BUNs/creatinine of 26/0.84 and blood glucose of 96 EKG: interpreted by [employer] with a rate of 77. SD 241. Left axis. Inferior Q waves. Wide-complex QRS. No acute ST change. Review of Systems REVIEW OF SYSTEMS: CONSTITUTIONAL: No fever, no malaise, no fatigue. HEENT: No recent visual problems or hearing problems. Denied any sore throat. CARDIOVASCULAR: No chest pain, orthopnea, PND, no palpitations, no syncope. PULMONARY: No shortness of breath, no cough, no hemoptysis. GASTROINTESTINAL: No diarrhea, no nausea, no vomiting, no abdominal pain. NEUROLOGICAL: No headaches, no weakness, no numbness. HEMATOLOGICAL: Denies any bleeding or petechiae. GENITOURINARY: Denies any burning micturition, frequency, or urgency. MUSCULOSKELETAL/RHEUMATOLOGICAL: Denies any joint pain, swelling, or any muscle pain. ENDOCRINE: Denies any polyuria or polydipsia. The rest of the 14-point review of systems is negative. Past Medical History Past Medical History: Atrial Fibrillation, Cancer, GERD/Reflux, Hyperlipidemia, Hypertension, Neurologic Disorder, Osteoarthritis (OA) Additional Past Medical History / Comment(s): GOUT. Toe fungus. 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 Being worked up at this time by Dr Leblanc History of Any Multi-Drug Resistant Organisms: None Reported Past Surgical History: Appendectomy, Bowel Resection, Hernia Repair, Pacemaker Additional Past Surgical History / Comment(s): COLON RESECTION CANCER. Inguinal right side. Cataract both eyes. lung bx postive for cancer, did radiation tx. multiple ct and pet scans done to monitor lung growths. Past Anesthesia/Blood Transfusion Reactions: No Reported Reaction Additional Past Anesthesia/Blood Transfusion Reaction / Comment(s): no hx blood transfusions Type of Cardiac Device: Permanent Pacemaker Device Placement Date:: biotronic DRTPro mRI placed 10/11/14 Past Psychological History: Anxiety Smoking Status: Former smoker - Past Family History Sister(s) Family Medical History: Cancer Additional Family Medical History / Comment(s): skin cancer Brother(s) Family Medical History: Cancer Additional Family Medical History / Comment(s): lymph nodes Medications and Allergies Home Medications Medication Instructions Recorded Confirmed Type Apixaban [Eliquis] 5 mg PO BID 09/03/22 04/14/24 History Atorvastatin [Lipitor] 40 mg PO HS 09/03/22 04/14/24 History Cholecalciferol [Vitamin D3 (125 125 mcg PO HS 09/03/22 04/14/24 History Mcg = 5000 Iu)] Famotidine [Pepcid] 20 mg PO BID 09/03/22 04/14/24 History Ferrous Sulfate [Iron (65 MG 1 tab PO HS 09/03/22 04/14/24 History Elemental)] Loratadine [Claritin] 10 mg PO BID PRN 09/03/22 04/14/24 History Magnesium 250 mg PO HS 09/03/22 04/14/24 History Omeprazole 20 mg PO BID 09/03/22 04/14/24 History Thiamine [Vitamin B-1] 100 mg PO HS 09/03/22 04/14/24 History Triamterene/Hydrochlorothiazid 1 tab PO BID 09/03/22 04/14/24 History [Maxzide 37.5-25] allopurinoL 300 mg PO DAILY 09/03/22 04/14/24 History amLODIPine [Norvasc] 10 mg PO HS 09/03/22 04/14/24 History diazePAM [Valium] 5 mg PO BID 09/03/22 04/14/24 History Metoprolol Tartrate [Lopressor] 50 mg PO BID 09/10/22 04/14/24 History Multivitamins, Thera [Multivitamin 1 tab PO HS 09/10/22 04/14/24 History (formulary)] Docusate [Colace] 100 mg PO BID PRN 12/27/22 04/14/24 History Econazole 1% Cream [Spectazole] 1 applic TOPICAL DAILY 12/27/22 04/14/24 History polyethylene glycoL 3350 [Miralax] 17 gm PO DAILY PRN 10/18/23 04/14/24 History Acetaminophen-Codeine 300-30mg 1 tab PO BID@1930,2330 04/14/24 04/14/24 History [Tylenol w/codeine #3] Betamethasone Dipropionate 1 applic TOPICAL BID PRN 04/14/24 04/14/24 History [Betamethasone Dipropionate 0.05% Cream] Folic Acid 0.8 mg PO HS 04/14/24 04/14/24 History Lipo Flavonoid Plus 2 tab PO TID@0500,1200,2000 04/14/24 04/14/24 History Nystatin [Nystop] 1 applic TOPICAL BID 04/14/24 04/14/24 History Allergies Allergy/AdvReac Type Severity Reaction Status Date / Time procaine [From Novocain] Allergy PASSED OUT Verified 04/14/24 17:45 Physical Exam Vitals: Vital Signs Temp Pulse Resp BP Pulse Ox 04/14/24 16:04 71 18 164/93 98 04/14/24 13:27 97.6 F 72 20 158/83 96 Intake and Output 04/14/24 04/14/24 04/14/24 06:59 14:59 22:59 Other: Weight 97.522 kg General appearance: alert, in no apparent distress Head exam: Present: normocephalic Eye exam: Present: normal appearance ENT exam: Present: normal oropharynx Neck exam: Present: normal inspection Respiratory exam: Present: normal lung sounds bilaterally Cardiovascular Exam: Present: regular rate, normal rhythm, normal heart sounds Peripheral pulses: 2+: Radial (R), Radial (L), Posterior Tibialis (R), Posterior Tibialis (L) GI/Abdominal exam: Present: soft. Absent: tenderness Extremities exam: Present: normal inspection. Absent: pedal edema, calf tenderness Neurological exam: Present: alert Psychiatric exam: Present: normal affect, normal mood Skin exam: Present: normal color Results CBC & Chem 7: 04/14/24 13:25 04/14/24 13:25 Labs: Abnormal Lab Results - Last 24 Hours (Table) 04/14/24 Range/Units 13:25 BUN 26 H (9-20) mg/dL Assessment and Plan Assessment: 1. 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 Pacemaker malfunction/syncopal episode; patient reports tingling sensation around pacemaker site -Cardiology on board and requesting pacemaker interrogation to ensure no increas e in pacing energy that might be stimulating his diaphragm causing tingling sensation -- Neurochecks and orthostatic vital signs ordered 3. Mild ARNALDO; IV fluids in form of normal saline; monitor strict JAMARI's, daily weights, renal function electrolytes 4. Hypertension; Norvasc 10 mg daily; Norvasc 50 mg twice daily 5. Hyperlipidemia; Lipitor 40 mg p.o. nightly 6. Atrial fibrillation; patient is on metoprolol 50 mg twice daily along with Eliquis for anticoagulation 7. Vitamin D deficiency; continue with home supplement DVT prophylaxis; SCDs/systemic anticoagulation CODE STATUS; full code
[2024-04-15] MEDS: CLOTRIMAZOLE 1% CREAM 30 GM TUBE TOPICAL SCH (15:56)
== END 2024-04-15 16:10 | disposition home or self-care (01) ==
LOC: EC 12:31 → 6NMEDSUR 19:27
PROVIDERS: ADMIT Internal Medicine; ATTEND Internal Medicine
DX: R07.9 Chest pain, unspecified (principal); R20.2 Paresthesia of skin; T82.119A Breakdown (mechanical) of unspecified cardiac electronic device, initial encounter; Y71.2 Prosthetic and other implants, materials and accessory cardiovascular devices associated with adverse incidents; R55 Syncope and collapse; I48.91 Unspecified atrial fibrillation; K21.9 Gastro-esophageal reflux disease without esophagitis; E78.5 Hyperlipidemia, unspecified; I10 Essential (primary) hypertension; F41.9 Anxiety disorder, unspecified; N17.9 Acute kidney failure, unspecified; E55.9 Vitamin D deficiency, unspecified; Z85.038 Personal history of other malignant neoplasm of large intestine; Z85.118 Personal history of other malignant neoplasm of bronchus and lung; Z86.73 Personal history of transient ischemic attack (TIA), and cerebral infarction without residual deficits; Z87.891 Personal history of nicotine dependence; Z92.3 Personal history of irradiation; Z95.0 Presence of cardiac pacemaker; Z79.01 Long term (current) use of anticoagulants; Z79.899 Other long term (current) drug therapy
CPT/HCPCS: 36415; 93005; 80061; 80053; 83735; 84484; 85025; 85610; 85730; 71046; G0378 ×2; 99285

== ENCOUNTER → 2024-07-19 | Outpatient (CLI) | payer MEDICARE ==
[2024-07-19 15:35] LABS: ALT 20 U/L (10-49); AST 22 U/L (14-35); Albumin 4.4 g/dL (3.8-4.9); Albumin/Globulin Ratio 1.83 Ratio (1.60-3.17); Alkaline Phosphatase 137 U/L (41-126); BUN/Creat Ratio 16.22 Ratio (12.00-20.00); Blood Urea Nitrogen 14.6 mg/dL (9.0-27.0); Calcium 9.3 mg/dL (8.7-10.3); Carbon Dioxide 28.9 mmol/L (21.6-31.8); Chloride 99 mmol/L (96-109); Globulin 2.4 g/dL (1.6-3.3); Glucose 100 mg/dL (70-110); Potassium 3.8 mmol/L (3.5-5.5); Sodium 139 mmol/L (135-145); Total Bilirubin 0.4 mg/dL (0.3-1.2); Total Protein 6.8 g/dL (6.2-8.2)
[2024-07-19 15:36] LABS: T4, Free (Free Thyroxine) 1.27 ng/dL (0.80-1.80)
== END | disposition home or self-care (01) ==
LOC: LABWHC1 08:21
PROVIDERS: ATTEND Family Medicine
DX: Z00.00 Encounter for general adult medical examination without abnormal findings (principal); Z12.5 Encounter for screening for malignant neoplasm of prostate; I10 Essential (primary) hypertension; C34.90 Malignant neoplasm of unspecified part of unspecified bronchus or lung; C18.9 Malignant neoplasm of colon, unspecified; E55.9 Vitamin D deficiency, unspecified
CPT/HCPCS: 84439; 80053; 84443; 82306; 36415; G0103

== ENCOUNTER → 2024-08-30 | Outpatient (CLI) | payer MEDICARE ==
--- NOTE | 2024-08-30 16:37 | PE ---
EXAMINATION TYPE: PET CT fusion skull to thigh DATE OF EXAM: 08/30/2024 CLINICAL INDICATION:Male, 79 years old with history of C34.32 LUNG CANCER; TECHNIQUE: Following the intravenous administration of 10.34 mCi of F-18 FDG, whole body images are performed from the skull base to the midthigh. Images are reviewed on the computer in the coronal, axial, and sagittal planes. Reconstructed rotating images are created on independent workstation and reviewed on the computer. A non-contrast CT is performed in conjunction with the PET scan. Glucose level 87 mg/dL CT DLP: 960.39 mGycm, Automated exposure control for dose reduction was used. COMPARISON: CT 10/20/2023, 08/31/2023, 05/06/2023, 01/19/2023, 12/30/2022, 11/26/2022, 08/06/2022, PET/CT , 09/23/2023, 08/27/2022, MRI: None FINDINGS: Mediastinal SUV mean is 2.0. Hepatic parenchyma SUV mean is 2.8. SKULL BASE AND NECK: No suspicious radiotracer activity. CHEST, MEDIASTINUM, AND HILAR REGION: * Increase size of consolidative opacity within the superior segment of the left lower lobe now boogie uring 4.6 x 2.4 cm, previously 2.1 x 2.1 cm. This demonstrates a maximum SUV of 3.0, previously 5.4, 2.5. * Right lower lobe medial stable consolidation changes max SUV 3.0, previously 3.2, 4.1. * No lymphadenopathy identified. ABDOMEN AND PELVIS: No suspicious radiotracer activity. MUSCULOSKELETAL STRUCTURES: No suspicious radiotracer activity. OTHER CT: Bilaterally aphakia. Left chest wall cardiac conduction leads terminating in the right vent ricle and right atrium. Bilateral gynecomastia. Atherosclerosis of the coronary arteries. Right renal cysts. Scattered colonic diverticula. Post surgical changes to the sigmoid colon. Right fat-containi ng inguinal hernia. Pelvic phleboliths. IMPRESSION: 1. Increased size of left lower lobe superior segment masslike consolidation from prior PET/CT with similar low level FDG uptake just above background levels. This still raises concern for progression of malignancy. 2. Stable right lower lung consolidation changes. No suspicious elevated FDG activity within this re gion. 3. No evidence for lymphadenopathy or evidence for additional sites of malignancy. [facility], , 08/30/2024 4:35 PM
== END | disposition home or self-care (01) ==
LOC: RADPETMAIN 10:19
PROVIDERS: ATTEND Internal Medicine Hematology & Oncology
DX: C34.32 Malignant neoplasm of lower lobe, left bronchus or lung (principal); R91.8 Other nonspecific abnormal finding of lung field
CPT/HCPCS: 78815; A9552

== ENCOUNTER → 2024-11-12 | Outpatient (CLI) | payer MEDICARE ==
--- NOTE | 2024-11-12 13:11 | CT ---
EXAMINATION TYPE: CT chest wo con CT DLP: 557 mGycm, Automated exposure control for dose reduction was used. DATE OF EXAM: 11/12/2024 12:59 PM COMPARISON: PET CT 08/30/2024, 02/20/2024, 09/23/2023, CT chest 10/20/2023, CT chest and pelvis 3 CLINICAL INDICATION:Male, 79 years old with history of C34.12 LUNG CANCER; PHH, Lung CA. TECHNIQUE: Multiple axial images were obtained through the chest without IV contrast. Lack of IV or o ral contrast limits evaluation of solid and hollow organ viscera. . Coronal and sagittal reformats re viewed. FINDINGS: LUNGS/ PLEURA: No pleural effusion or pneumothorax. No new pulmonary nodules. Similar bilateral upper lobe linear scarring. Marginal decrease in size in left lower lobe superior segment masslike consoli dation measuring grossly 4.3 x 1.9 cm, previously 4.6 x 2.4 cm. Stable medial right lower lobe massli ke consolidation measuring grossly 4.8 x 2.3 cm. Elevation of the right hemidiaphragm. AIRWAY: Patent and unremarkable.. HEART: Size within normal limits.Left anterior chest wall 2-lead cardiac pacemaker device with leads terminating in the right atrium and right ventricle. No pericardial effusion. Mild to moderate ervin ry arterial calcifications. MEDIASTINUM: No gross evidence of adenopathy. VASCULATURE: No aortic aneurysm. MUSCULOSKELETAL: No acute osseous abnormalities SOFT TISSUES/LYMPH NODES: Bilateral gynecomastia. LOWER NECK: No significant findings. UPPER ABDOMEN: Right renal cyst measuring 3.1 cm. IMPRESSION: Marginal decrease in size of superior segment left lower lobe masslike consolidation with similar rig ht lower lobe masslike consolidation. No new or enlarging pulmonary nodules or masses. Only demonstra parmjit low level FDG uptake on prior PET/CT. Cannot exclude low metabolic malignancy. Continued surveill ance is recommended. [facility], , 11/12/2024 1:09 PM
== END | disposition home or self-care (01) ==
LOC: RADCTMAIN 12:43
PROVIDERS: ATTEND Radiology Radiation Oncology
DX: C34.12 Malignant neoplasm of upper lobe, left bronchus or lung (principal)
CPT/HCPCS: 71250

== ENCOUNTER 2025-03-19 08:11 | Day surgery (SDC) | payer MEDICARE ==
[2025-03-19] MEDS: IV FLUID CONTINUATION 1,000 ML IV ONE (08:44)
[2025-03-19] MEDS: LACTATED RINGERS 1,000 ML IV SCH (08:58)
[2025-03-19 09:00] VITALS: RESP 16; TEMP 97.4
[2025-03-19] MEDS ORDERED: PROPOFOL 10 MG/ML 20 ML VIAL IV ONE (09:14)
--- NOTE | 2025-03-19 09:41 | P.PCN ---
Date of Procedure: 03/19/25 Procedure(s) Performed: PREOPERATIVE DIAGNOSIS: Screening with history of colon cancer and recent abnormal PET scan POSTOPERATIVE DIAGNOSIS: Small descending colon polyp, slightly suboptimal prep PROCEDURE: Colonoscopy with snare polypectomy ANESTHESIA: MAC SURGEON: Ruben Nick M.D. SPECIMENS: Polyp ENDOSCOPIC PROCEDURE: The patient was placed on the endoscopy table in the left decubitus position. The Olympus colonoscope was inserted into the anus and passed under direct visualization to the base of the cecum. The appendiceal orifice was visualized. From that point the scope was slowly withdrawn inspecting all surfaces carefully. There were no neoplastic inflammatory or polypoid lesions throughout the cecum, ascending, and transverse colon. In the descending colon a small polyp was seen and removed using the snare with cautery technique. The colorectal anastomosis was widely patent. The rectum appeared normal. The patient's prep was slightly suboptimal. There was no diverticulosis seen. Digital rectal examination was normal. The patient was taken to the recovery room in stable condition per anesthesia guidelines. RECOMMENDATIONS: Await biopsy results. Repeat colonoscopy 3 years.
[2025-03-19 10:04] VITALS: BP 123/74; PULSE 85
== END 2025-03-19 10:37 | disposition home or self-care (01) ==
LOC: ORWHC2ENDO 08:11
PROVIDERS: ATTEND Surgery
DX: Z12.11 Encounter for screening for malignant neoplasm of colon (principal); D12.4 Benign neoplasm of descending colon; I10 Essential (primary) hypertension; E78.5 Hyperlipidemia, unspecified; I48.91 Unspecified atrial fibrillation; N40.0 Benign prostatic hyperplasia without lower urinary tract symptoms; K21.9 Gastro-esophageal reflux disease without esophagitis; Z85.038 Personal history of other malignant neoplasm of large intestine; Z85.118 Personal history of other malignant neoplasm of bronchus and lung; Z79.01 Long term (current) use of anticoagulants; Z79.899 Other long term (current) drug therapy; Z90.49 Acquired absence of other specified parts of digestive tract; Z88.8 Allergy status to other drugs, medicaments and biological substances
CPT/HCPCS: 88305; 45385; J2704